=== PATIENT | female | born 1930 | race Caucasian/White ===

== ENCOUNTER 2017-09-13 09:59 | Inpatient (IN) | payer MEDICARE ==
[2017-09-13] MEDS: IV NORMAL SALINE 1000ML BAG 1,000 ML IV (11:06)
[2017-09-13] MEDS: 0.9 % SODIUM CHLORIDE 10 ML DISP.SYRIN. IV (11:06)
[2017-09-13 11:08] LABS: ADD MAN DIFF? NO
[2017-09-13 11:10] LABS: BASO # 0.1 x10^3/uL (0.0-0.2); BASO % 1 % (0-3); EOS # 0.1 x10^3/uL (0.0-0.7); EOS % 1 % (0-3); HEMATOCRIT 38.6 % (36.0-47.0); HEMOGLOBIN 12.6 g/dL (12.0-15.5); LYMPH # 2.3 x10^3/uL (1.0-4.8); LYMPH % 25 % (24-48); MEAN CORPUSCULAR HEMOGLOBIN 30 pg (25-35); MEAN CORPUSCULAR HGB CONC 33 g/dL (31-37); MEAN CORPUSCULAR VOLUME 91 fL (79-100); MONO # 0.7 x10^3/uL (0.0-1.1); MONO % 8 % (0-9); NEUT # 6.1 x10^3uL (1.8-7.7); NEUT % 66 % (31-73); PLATELET COUNT 159 x10^3/uL (140-400); RED BLOOD COUNT 4.22 x10^6/uL (3.50-5.40); RED CELL DISTRIBUTION WIDTH 14.8 % (11.5-14.5); WHITE BLOOD COUNT 9.2 x10^3/uL (4.0-11.0)
[2017-09-13] MEDS ORDERED: MECLIZINE HCL 12.5 MG TABLET. PO (12:00)
[2017-09-13] MEDS ORDERED: MAGNESIUM HYDROXIDE 2,400 MG/30 ML ORAL.SUSP. PO (12:00)
[2017-09-13] MEDS ORDERED: fentaNYL PF VIAL 100 MCG/2 ML VIAL IV (12:00)
[2017-09-13] MEDS ORDERED: traMADol 50 MG TABLET PO (12:00)
[2017-09-13] MEDS ORDERED: LACTULOSE 20 GM/30 ML SOLUTION. PO (12:00)
[2017-09-13] MEDS ORDERED: IBUPROFEN 400 MG TABLET. PO (12:00)
[2017-09-13] MEDS ORDERED: NITROGLYCERIN SUBLINGUAL 0.4 MG BOTTLE OF 25. SL (12:00)
[2017-09-13] MEDS ORDERED: BISACODYL 10 MG SUPP.RECT. PR (12:00)
[2017-09-13 12:23] LABS: TROPONINI < 0.017 ng/mL (0.000-0.055)
[2017-09-13 12:25] LABS: D-DIMER 0.45 ug/mlFEU (0.00-0.50)
[2017-09-13 12:28] LABS: ANION GAP 12 (6-14); BLOOD UREA NITROGEN 18 mg/dL (7-20); CALCIUM 8.8 mg/dL (8.5-10.1); CARBON DIOXIDE 23 mmol/L (21-32); CHLORIDE 107 mmol/L (98-107); CREATININE 0.8 mg/dL (0.6-1.0); GLUCOSE 93 mg/dL (70-99); POTASSIUM 4.5 mmol/L (3.5-5.1); SODIUM 142 mmol/L (136-145)
[2017-09-13 12:28] LABS: THYROID STIM HORMONE (TSH) 1.268 uIU/mL (0.358-3.74)
[2017-09-13 12:32] LABS: ALBUMIN 3.5 g/dL (3.4-5.0); ALK PHOS 58 U/L (46-116); ALT (SGPT) 18 U/L (14-59); AST (SGOT) 18 U/L (15-37); DIRECT BILIRUBIN 0.2 mg/dL (0.0-0.2); LIPASE 36 U/L (73-393); TOTAL BILIRUBIN 0.5 mg/dL (0.2-1.0); TOTAL PROTEIN 7.6 g/dL (6.4-8.2)
[2017-09-13 12:40] LABS: CKMB MASS 1.2 ng/mL (0.0-3.6); CREATINE KINASE 47 U/L (26-192)
[2017-09-13 12:40] LABS: NT-PRO BNP 2183 pg/mL (0-449)
[2017-09-13 12:50] LABS: BILIRUBIN,URINE NEGATIVE (NEG); CLARITY,URINE CLEAR; COLOR,URINE YELLOW; GLUCOSE,URINE NEGATIVE (NEG); NITRITE,URINE NEGATIVE (NEG); PROTEIN,URINE NEGATIVE (NEG-TRACE); UROBILINOGEN,URINE 0.2 mg/dL (0.2 mg/dL)
[2017-09-13 13:02] LABS: RBC,URINE 0 /HPF (0-2)
[2017-09-13 13:03] LABS: AMORPHOUS SEDIMENT,UR PRESENT /HPF; BACTERIA,URINE 0 /HPF (0-FEW); SQUAMOUS EPITHELIAL CELL,UR FEW /LPF
[2017-09-13] MEDS: LISINOPRIL 5 MG TABLET. PO (13:45)
[2017-09-13] MEDS: METOPROLOL SUCC 24HR ER 25 MG TAB.ER.24H. PO ×2 (13:45→13:46)
[2017-09-13] MEDS: FLUoxetine HCL 20 MG CAPSULE PO (13:45)
[2017-09-13] MEDS: CLOPIDOGREL BISULFATE 75 MG TABLET PO (13:45)
[2017-09-13] MEDS: ASPIRIN ENTERIC COATED 325 MG TABLET.DR. PO (13:48)
[2017-09-13] MEDS: ONDANSETRON PF 4 MG/2 ML VIAL. IV (20:04)
[2017-09-13] MEDS: ACETAMINOPHEN 325 MG TABLET. PO (20:46)
[2017-09-13] MEDS: DOCUSATE SODIUM 100 MG CAPSULE. PO (20:46)
[2017-09-14] MEDS: FLUoxetine HCL 20 MG CAPSULE PO (08:10)
[2017-09-14] MEDS: CLOPIDOGREL BISULFATE 75 MG TABLET PO (08:10)
[2017-09-14] MEDS: DOCUSATE SODIUM 100 MG CAPSULE. PO (08:10)
[2017-09-14] MEDS: METOPROLOL SUCC 24HR ER 25 MG TAB.ER.24H. PO (08:10)
[2017-09-14] MEDS: LISINOPRIL 5 MG TABLET. PO (08:10)
[2017-09-14] MEDS: ASPIRIN ENTERIC COATED 325 MG TABLET.DR. PO (08:16)
[2017-09-14] MEDS: ACETAMINOPHEN 325 MG TABLET. PO (09:36)
[2017-09-14] MEDS ORDERED: ATORVASTATIN CALCIUM 10 MG TABLET. PO (21:00)
== END 2017-09-14 15:09 | disposition home or self-care (01) | DRG 149 ==
LOC: ER 09:59 → 5 SOUTH 11:00
DX: H81.10 Benign paroxysmal vertigo, unspecified ear (principal); I11.9 Hypertensive heart disease without heart failure; F32.9 Major depressive disorder, single episode, unspecified; I25.10 Atherosclerotic heart disease of native coronary artery without angina pectoris; I25.2 Old myocardial infarction; M17.12 Unilateral primary osteoarthritis, left knee; M19.90 Unspecified osteoarthritis, unspecified site; Z96.659 Presence of unspecified artificial knee joint; Z85.3 Personal history of malignant neoplasm of breast; Z86.73 Personal history of transient ischemic attack (TIA), and cerebral infarction without residual deficits; Z90.49 Acquired absence of other specified parts of digestive tract; Z95.5 Presence of coronary angioplasty implant and graft; Z88.6 Allergy status to analgesic agent; Z88.1 Allergy status to other antibiotic agents; Z88.8 Allergy status to other drugs, medicaments and biological substances
CPT/HCPCS: 36415; 71045; 80048; 80076; 81001; 82553; 83690; 83735; 83880; 84443; 84484; 85025; 85379; 87086; 93005; 95992-GP; 96361; 96374; 97116-GP; 97162-GP; 97166-GO; 97530-GP; 99285-25; J2405; J7030

== ENCOUNTER 2018-11-19 09:42 | Inpatient (IN) | payer MEDICARE ==
[~2018-11-19] VITALS: Ht 162.6 cm; Wt 67.8 kg
[~2018-11-19 09:42] MED LIST: ASPI-630 PO; ASPI325T11 PO; ATOR10TA60 PO; ATOR40TA59 PO; CLOP75TA PO; FLUO40CA2 PO; LISI-338 PO; METO-239 PO; METO25TA4 PO; NITR0.4T SL; TICA90TA PO
[2018-11-19 10:26] LABS: BASO % 1 % (0-3); EOS # 0.2 x10^3/uL (0.0-0.7); EOS % 4 % (0-3); HEMATOCRIT 38.4 % (36.0-47.0); HEMOGLOBIN 12.6 g/dL (12.0-15.5); LYMPH # 1.4 x10^3/uL (1.0-4.8); LYMPH % 30 % (24-48); MEAN CORPUSCULAR HEMOGLOBIN 29 pg (25-35); MEAN CORPUSCULAR HGB CONC 33 g/dL (31-37); MEAN CORPUSCULAR VOLUME 89 fL (79-100); MONO # 0.5 x10^3/uL (0.0-1.1); MONO % 10 % (0-9); NEUT # 2.6 x10^3uL (1.8-7.7); NEUT % 55 % (31-73); PLATELET COUNT 170 x10^3/uL (140-400); RED BLOOD COUNT 4.29 x10^6/uL (3.50-5.40); RED CELL DISTRIBUTION WIDTH 15.1 % (11.5-14.5); WHITE BLOOD COUNT 4.8 x10^3/uL (4.0-11.0)
[2018-11-19 10:35] LABS: PROTHROMBIN TIME PATIENT 14.6 SEC (11.7-14.0)
[2018-11-19 10:51] LABS: CALCIUM 8.6 mg/dL (8.5-10.1); CREATININE 0.7 mg/dL (0.6-1.0); GFR 79.2
[2018-11-19 10:58] LABS: ALBUMIN/GLOBULIN RATIO 0.8 (1.0-1.7); MAGNESIUM 2.1 mg/dL (1.8-2.4); TOTAL BILIRUBIN 0.7 mg/dL (0.2-1.0); TOTAL PROTEIN 6.6 g/dL (6.4-8.2)
[2018-11-19 11:04] LABS: CREATINE KINASE 68 U/L (26-192)
--- NOTE | 2018-11-19 11:11 | RAD ---
Portable chest, 11/19/2018: HISTORY: Fall, syncope Comparison is made to a study from 12/30/2017. The heart is at the upper limits of normal in size. There is calcific plaquing of the aorta. The pulmonary vascularity is normal. There are minimal parenchymal scars. No pulmonary consolidation is seen. There is no evidence of pleural fluid. There is chronic deformity of the posterior lateral aspect of the left seventh rib. Radiopacities projected over the region of the GE junction are presumably postsurgical. Scattered degenerative changes are evident in the spine. IMPRESSION: No acute cardiopulmonary abnormality is detected. Portable left knee, 2 views, 11/19/2018: HISTORY: Knee pain There is moderate narrowing of the medial compartment of the left knee joint. There is mild spurring at the knee joint and at the patellofemoral articulation. No acute fracture or dislocation is identified. No large joint effusion is seen. Arterial calcifications are evident. IMPRESSION: 1. Degenerative change. 2. No acute bony abnormality is detected. Electronically signed by: Gabo Jules MD (11/19/2018 11:07 AM) [facility]
[2018-11-19 11:39] LABS: BILIRUBIN,URINE NEGATIVE (NEG); CLARITY,URINE CLEAR; COLOR,URINE YELLOW; NITRITE,URINE NEGATIVE (NEG); PROTEIN,URINE NEGATIVE (NEG-TRACE); UROBILINOGEN,URINE 0.2 mg/dL (0.2 mg/dL)
--- NOTE | 2018-11-19 11:54 | RAD ---
CT of the cervical spine without contrast, 11/19/2018: HISTORY: Fall, injury, pain Noncontrast scans were obtained with multiplanar reconstructions produced. There is moderate disc space narrowing and marginal spurring at all of the levels from C3-4 down through C6-7. There are mild to moderate degenerative changes involving scattered facet joints bilaterally. The combination of findings is causing mild central spinal stenosis at several levels, greatest at C4-5 and C5-6. There is slight anterolisthesis at C2-3 and C3-4 which appears to be due to facet joint arthropathy. No fracture is identified. Moderate calcific plaquing is present at the carotid bifurcations. IMPRESSION: 1. Moderate multilevel degenerative change as described above. 2. No acute bony abnormality is detected. PQRS Compliance Statement: One or more of the following individualized dose reduction techniques were utilized for this examination: 1. Automated exposure control 2. Adjustment of the mA and/or kV according to patient size 3. Use of iterative reconstruction technique Electronically signed by: Gabo Jules MD (11/19/2018 11:52 AM) [facility]
[2018-11-19 11:58] LABS: BACTERIA,URINE FEW /HPF (0-FEW); RBC,URINE OCC /HPF (0-2); SQUAMOUS EPITHELIAL CELL,UR FEW /LPF; WBC,URINE OCC /HPF (0-4)
--- NOTE | 2018-11-19 12:06 | RAD ---
EXAM: CT Head without IV contrast CLINICAL HISTORY: fell, hit head and face on floor, having headache, neck pain, facial pain COMPARISON: None. TECHNIQUE: Routine CT of the head without contrast. Soft tissues and bone windows were reviewed. PQRS compliance statement - One or more of the following individualized dose reduction techniques were utilized for this study: 1. Automated exposure control 2. Adjustment of the mA and/or kV according to patient size 3. Use of iterative reconstruction technique FINDINGS: There is no evidence of hemorrhage, mass or extra-axial fluid collection. Groves-white differentiation is maintained with no evidence of edema. There are non-specific foci of hypodensity in the periventricular and subcortical white matter of the cerebral hemispheres, possibly changes of chronic small vessel disease. There is no mass effect or shift of the intracranial structures. The ventricles and cerebral sulci are prominent for the patients stated age consistent with generalized cerebral volume loss. Peripherally calcified choroid plexus cystic structures are seen. The cerebellum and brainstem are unremarkable. The calvarium demonstrates no evidence of fracture or focal lesion. There is normal aeration of the visualized paranasal sinuses and mastoid air cells. The visualized portions of the orbits are normal. Marked soft tissue swelling overlying the left frontal region. Atherosclerotic calcifications of the intracranial internal carotid and vertebral arteries is seen. IMPRESSION: 1. No evidence for acute intracranial process. 2. Changes of chronic small vessel disease. 3. Marked subcutaneous soft tissue swelling overlying the left frontal region. EXAM: CT facial bones without contrast CLINICAL HISTORY: fell, hit head and face on floor, having headache, neck pain, facial pain COMPARISON: None available. TECHNIQUE: Helical CT of the face/paranasal sinuses was acquired and axial, coronal and sagittal reformatted images were generated. ---PQRS compliance statement - One or more of the following individualized dose reduction techniques were utilized for this study: 1. Automated exposure control 2. Adjustment of the mA and/or kV according to patient size 3. Use of iterative reconstruction technique--- FINDINGS: Moderate subcutaneous soft tissue swelling overlying the left frontal region. No definite fracture is noted of the facial bones. The visualized paranasal sinuses are well-aerated. No evidence of air-fluid levels. The mastoids are unremarkable. The globes, extraocular muscles, optic nerves and retrobulbar fat are normal. Visualized upper aerodigestive tract is normal. Mandible and bilateral temporomandibular joints are normal. IMPRESSION: 1. Moderate soft tissue swelling overlying the left frontal region. No definite associated fracture or dislocation is identified. Electronically signed by: Song Maldonado MD (11/19/2018 12:03 PM) [id number]
--- NOTE | 2018-11-19 12:41 | EKG ---
[facility] [address] [place] [address] Test Date: 2018-11-19 Test Time: 10:05:49 Pat Name: SHENA ULLOA Department: Room: Gender: F [employer]: : 1930 Requested By: ZIYAD BUENROSTRO Order Number: [id number] Reading MD: Leopoldo Parker MD Measurements Intervals [place] Rate: 73 P: 49 RI: 226 QRS: -56 QRSD: 150 T: 93 QT: 436 QTc: 484 Interpretive Statements SINUS RHYTHM LBBB CANNOT RULE OUT PRIOR INFARCT Electronically Signed On 11-19-2018 15:51:33 CDT by Leopoldo Parker MD
--- NOTE | 2018-11-19 13:07 | PHYS DOC ---
Past Medical History Past Medical History: Arthritis, CAD, Cancer, Depression, SC, TIA, Other Additional Past Medical Histor: BREAST CANCER, HEMORRHOIDS Past Surgical History: Appendectomy, Cholecystectomy, Knee Replacement, Other Additional Past Surgical Histo: STOMACH RESECTION, R MASECTOMY, VEIN STRIPPED R LEG, CARDIAC STENTS Alcohol Use: None Drug Use: None Adult General Chief Complaint Chief Complaint: MECHANICAL FALL HPI HPI Patient is a 88 year old FEMALE who was brought here for evaluation from home after she collapsed suddenly, hit her head, face on ground. Patient also hit her left knee, having left knee pain. Patient did not remember what happened. She denies any chest pain or any headache prior to the syncopal episode. She denies any pelvic pain, no back pain. Review of Systems Review of Systems Constitutional: Denies fever or chills [] Eyes: Denies change in visual acuity, redness, or eye pain [] HENT: Denies nasal congestion or sore throat [] Respiratory: Denies cough or shortness of breath [] Cardiovascular: No additional information not addressed in HPI [] GI: Denies abdominal pain, nausea, vomiting, bloody stools or diarrhea [] : Denies dysuria or hematuria [] Musculoskeletal: Denies back pain, Positive for right knee pain. Integument: Denies rash or skin lesions [] Neurologic: POSITIVE FOR headache, no focal weakness or sensory changes [] Endocrine: Denies polyuria or polydipsia [] All other systems were reviewed and found to be within normal limits, except as documented in this note. Current Medications Current Medications Allergies Allergies Allergies Coded Allergies Type Severity Reaction Last Updated Verified Opioids - Morphine Analogues Allergy Severe Anaphylaxis 08/12/17 Yes Opioids-Meperidine and Related Allergy Severe Anaphylaxis 08/12/17 Yes Opioids-Methadone and Related Allergy Severe Anaphylaxis 08/12/17 Yes ciprofloxacin Allergy Intermediate Rash 08/12/17 Yes Physical Exam Physical Exam Constitutional: Well developed, well nourished, no acute distress, non-toxic appearance. [] HENT: Left side temporal area contusion, LEFT SIDE FOREHEAD CONTUSION, left side cheek contusion, left periorbital contusion, bilateral external ears normal , oropharynx moist, no oral exudates, nose normal. [] Eyes: PERRLA, EOMI, conjunctiva normal, no discharge. [] Neck: Normal range of motion, no tenderness, supple, no stridor. [] Cardiovascular:Heart rate regular rhythm, no murmur [] Lungs & Thorax: Bilateral breath sounds clear to auscultation [] Abdomen: Bowel sounds normal, soft, no tenderness, no masses, no pulsatile masses. [] Skin: Warm, dry, no erythema, no rash. [] Back: No tenderness, no CVA tenderness. [] Extremities: No tenderness, no cyanosis, no clubbing, ROM intact, no edema. LEFT KNEE, ANTERIOR AREA IS TENDER AND CONTUSED, KNEE JOINT IS STABLE, Neurologic: Alert and oriented X 3, normal motor function, normal sensory function, no focal deficits noted. [] Psychologic: Affect normal, judgement normal, mood normal. [] Current Patient Data Vital Signs Vital Signs Date Time Temp Pulse Resp B/P (MAP) Pulse Ox O2 Delivery O2 Flow Rate FiO2 11/19/18 12:30 68 18 97 11/19/18 09:45 97.9 161/85 (110) Room Air 97.9 Lab Values Laboratory Tests Test 11/19/18 10:15 11/19/18 11:25 White Blood Count 4.8 x10^3/uL (4.0-11.0) Red Blood Count 4.29 x10^6/uL (3.50-5.40) Hemoglobin 12.6 g/dL (12.0-15.5) Hematocrit 38.4 % (36.0-47.0) Mean Corpuscular Volume 89 fL (79-100) Mean Corpuscular Hemoglobin 29 pg (25-35) Mean Corpuscular Hemoglobin Concent 33 g/dL (31-37) Red Cell Distribution Width 15.1 % (11.5-14.5) H Platelet Count 170 x10^3/uL (140-400) Neutrophils (%) (Auto) 55 % (31-73) Lymphocytes (%) (Auto) 30 % (24-48) Monocytes (%) (Auto) 10 % (0-9) H Eosinophils (%) (Auto) 4 % (0-3) H Basophils (%) (Auto) 1 % (0-3) Neutrophils # (Auto) 2.6 x10^3uL (1.8-7.7) Lymphocytes # (Auto) 1.4 x10^3/uL (1.0-4.8) Monocytes # (Auto) 0.5 x10^3/uL (0.0-1.1) Eosinophils # (Auto) 0.2 x10^3/uL (0.0-0.7) Basophils # (Auto) 0.0 x10^3/uL (0.0-0.2) Prothrombin Time 14.6 SEC (11.7-14.0) H Prothrombin Time INR 1.2 (0.8-1.1) H PTT 32 SEC (24-38) Sodium Level 142 mmol/L (136-145) Potassium Level 4.0 mmol/L (3.5-5.1) Chloride Level 108 mmol/L (98-107) H Carbon Dioxide Level 23 mmol/L (21-32) Anion Gap 11 (6-14) Blood Urea Nitrogen 11 mg/dL (7-20) Creatinine 0.7 mg/dL (0.6-1.0) Estimated GFR (Cockcroft-Gault) 79.2 BUN/Creatinine Ratio 16 (6-20) Glucose Level 102 mg/dL (70-99) H Calcium Level 8.6 mg/dL (8.5-10.1) Magnesium Level 2.1 mg/dL (1.8-2.4) Total Bilirubin 0.7 mg/dL (0.2-1.0) Aspartate Amino Transferase (AST) 21 U/L (15-37) Alanine Aminotransferase (ALT) 17 U/L (14-59) Alkaline Phosphatase 60 U/L (46-116) Creatine Kinase 68 U/L (26-192) Creatine Kinase MB (Mass) 2.0 ng/mL (0.0-3.6) Creatine Kinase MB Relative Index % (0-4) Troponin I Quantitative 0.044 ng/mL (0.000-0.055) TY-Miv-Z-Type Natriuretic Peptide 1520 pg/mL (0-449) H Total Protein 6.6 g/dL (6.4-8.2) Albumin 3.0 g/dL (3.4-5.0) L Albumin/Globulin Ratio 0.8 (1.0-1.7) L Urine Collection Type Unknown Urine Color Yellow Urine Clarity Clear Urine pH 6.0 Urine Specific [place] 1.015 Urine Protein Negative mg/dL (NEG-TRACE) Urine Glucose (UA) Negative mg/dL (NEG) Urine Ketones (Stick) Negative mg/dL (NEG) Urine Blood Negative (NEG) Urine Nitrite Negative (NEG) Urine Bilirubin Negative (NEG) Urine Urobilinogen Dipstick 0.2 mg/dL (0.2 mg/dL) Urine Leukocyte Esterase Negative (NEG) Urine RBC Occ /HPF (0-2) Urine WBC Occ /HPF (0-4) Urine Squamous Epithelial Cells Few /LPF Urine Bacteria Few /HPF (0-FEW) Laboratory Tests 11/19/18 10:15 Laboratory Tests 11/19/18 10:15 EKG EKG EKG WAS READ BY THIS PHYSICIAN AT 1006, RATE OF 73 bpm, no STEMI., WIDE QRS COMPLEX, NO CHANGE FROM PREVIOUS EKG.[] Radiology/Procedures Radiology/Procedures [][facility] [address] [place] [address] IMAGING REPORT Signed PATIENT: SHENA ULLOA ACCOUNT: [id number] : 1930 LOCATION: ER AGE: 88 SEX: F EXAM STATUS: REG ER ORD. PHYSICIAN: ZIYAD BUENROSTRO DO REASON: fell, hit head and face on floor, having headache, neck pain, facial pain PROCEDURE: CT HEAD AND MAXILLOFACIAL WO EXAM: CT Head without IV contrast CLINICAL HISTORY: fell, hit head and face on floor, having headache, neck pain, facial pain COMPARISON: None. TECHNIQUE: Routine CT of the head without contrast. Soft tissues and bone windows were reviewed. PQRS compliance statement - One or more of the following individualized dose reduction techniques were utilized for this study: 1. Automated exposure control 2. Adjustment of the mA and/or kV according to patient size 3. Use of iterative reconstruction technique FINDINGS: There is no evidence of hemorrhage, mass or extra-axial fluid collection. Groves-white differentiation is maintained with no evidence of edema. There are non-specific foci of hypodensity in the periventricular and subcortical white matter of the cerebral hemispheres, possibly changes of chronic small vessel disease. There is no mass effect or shift of the intracranial structures. The ventricles and cerebral sulci are prominent for the patients stated age consistent with generalized cerebral volume loss. Peripherally calcified choroid plexus cystic structures are seen. The cerebellum and brainstem are unremarkable. The calvarium demonstrates no evidence of fracture or focal lesion. There is normal aeration of the visualized paranasal sinuses and mastoid air cells. The visualized portions of the orbits are normal. Marked soft tissue swelling overlying the left frontal region. Atherosclerotic calcifications of the intracranial internal carotid and vertebral arteries is seen. IMPRESSION: 1. No evidence for acute intracranial process. 2. Changes of chronic small vessel disease. 3. Marked subcutaneous soft tissue swelling overlying the left frontal region. EXAM: CT facial bones without contrast CLINICAL HISTORY: fell, hit head and face on floor, having headache, neck pain, facial pain COMPARISON: None available. TECHNIQUE: Helical CT of the face/paranasal sinuses was acquired and axial, coronal and sagittal reformatted images were generated. ---PQRS compliance statement - One or more of the following individualized dose reduction techniques were utilized for this study: 1. Automated exposure control 2. Adjustment of the mA and/or kV according to patient size 3. Use of iterative reconstruction technique--- FINDINGS: Moderate subcutaneous soft tissue swelling overlying the left frontal region. No definite fracture is noted of the facial bones. The visualized paranasal sinuses are well-aerated. No evidence of air-fluid levels. The mastoids are unremarkable. The globes, extraocular muscles, optic nerves and retrobulbar fat are normal. Visualized upper aerodigestive tract is normal. Mandible and bilateral temporomandibular joints are normal. IMPRESSION: 1. Moderate soft tissue swelling overlying the left frontal region. No definite associated fracture or dislocation is identified. Electronically signed by: Song Hernandez MD (11/19/2018 12:03 PM) [id number] DICTATED and SIGNED BY: SONG HERNANDEZ MD DATE: 11/19/18 1203 [facility] [address] [place], [place] [id number] IMAGING REPORT Signed PATIENT: SHENA ULLOA ACCOUNT: [id number] : 1930 LOCATION: ER AGE: 88 SEX: F EXAM STATUS: REG ER ORD. PHYSICIAN: ZIYAD BUENROSTRO DO REASON: fell, hit head and face on floor, having headache, neck pain, facial pain PROCEDURE: CT CERVICAL SPINE WO CONTRAST CT of the cervical spine without contrast, 11/19/2018: HISTORY: Fall, injury, pain Noncontrast scans were obtained with multiplanar reconstructions produced. There is moderate disc space narrowing and marginal spurring at all of the levels from C3-4 down through C6-7. There are mild to moderate degenerative changes involving scattered facet joints bilaterally. The combination of findings is causing mild central spinal stenosis at several levels, greatest at C4-5 and C5-6. There is slight anterolisthesis at C2-3 and C3-4 which appears to be due to facet joint arthropathy. No fracture is identified. Moderate calcific plaquing is present at the carotid bifurcations. IMPRESSION: 1. Moderate multilevel degenerative change as described above. 2. No acute bony abnormality is detected. RS Compliance Statement: One or more of the following individualized dose reduction techniques were utilized for this examination: 1. Automated exposure control 2. Adjustment of the mA and/or kV according to patient size 3. Use of iterative reconstruction technique Electronically signed by: Gabo Jules MD (11/19/2018 11:52 AM) [facility] DICTATED and SIGNED BY: GABO JULES MD DATE: 11/19/[address] [place] [address] [address] [place] [address] IMAGING REPORT Signed PATIENT: SHENA ULLOA ACCOUNT: [id number] : 1930 LOCATION: ER AGE: 88 SEX: F EXAM STATUS: REG ER ORD. PHYSICIAN: ZIYAD BUENROSTRO DO REASON: fell, left knee injury PROCEDURE: KNEE LEFT 3V Portable chest, 11/19/2018: HISTORY: Fall, syncope Comparison is made to a study from 12/30/2017. The heart is at the upper limits of normal in size. There is calcific plaquing of the aorta. The pulmonary vascularity is normal. There are minimal parenchymal scars. No pulmonary consolidation is seen. There is no evidence of pleural fluid. There is chronic deformity of the posterior lateral aspect of the left seventh rib. Radiopacities projected over the region of the GE junction are presumably postsurgical. Scattered degenerative changes are evident in the spine. IMPRESSION: No acute cardiopulmonary abnormality is detected. Portable left knee, 2 views, 11/19/2018: HISTORY: Knee pain There is moderate narrowing of the medial compartment of the left knee joint. There is mild spurring at the knee joint and at the patellofemoral articulation. No acute fracture or dislocation is identified. No large joint effusion is seen. Arterial calcifications are evident. IMPRESSION: 1. Degenerative change. 2. No acute bony abnormality is detected. Electronically signed by: Gabo Jules MD (11/19/2018 11:07 AM) [facility] DICTATED and SIGNED BY: GABO JULES MD DATE: 11/19/18 1108 Course & Med Decision Making Course & Med Decision Making Pertinent Labs and Imaging studies reviewed. (See chart for details) [] Dragon Disclaimer Dragon Disclaimer This electronic medical record was generated, in whole or in part, using a voice recognition dictation system. Departure Departure Impression: Primary Impression: Syncope and collapse Additional Impressions: Contusion of face Head injury Disposition: ADMITTED INPATIENT Admitting Physician: Other (DR. SAIRA WEBER) Condition: STABLE Referrals: ANSHUL VALENCIA MD (PCP) Problem Qualifiers ZIYAD BUENROSTRO DO Nov 19, 2018 13:07
[2018-11-19] MEDS ORDERED: oxyCODONE/APAP 5/325 1 TAB TABLET PO PRN (13:15)
[2018-11-19] MEDS ORDERED: LACTULOSE 20 GM/30 ML SOLUTION. PO PRN (13:15)
[2018-11-19] MEDS ORDERED: ONDANSETRON PF 4 MG/2 ML VIAL. IV PRN ×2 (13:15)
[2018-11-19] MEDS ORDERED: ELECTROLYTE (NON-ICU) PROTOCOL MC PRN (13:15)
[2018-11-19] MEDS ORDERED: ZOLPIDEM 5 MG TABLET. PO PRN (13:15)
[2018-11-19] MEDS ORDERED: NITROGLYCERIN SUBLINGUAL 0.4 MG BOTTLE OF 25. SL PRN (13:15)
[2018-11-19] MEDS ORDERED: ACETAMINOPHEN 325 MG TABLET. PO PRN (13:15)
[2018-11-19] MEDS ORDERED: MORPHINE SULFATE 2 MG/ML VIAL. IV PRN (13:15)
[2018-11-19] MEDS ORDERED: fentaNYL PF VIAL 100 MCG/2 ML VIAL IV PRN (14:00)
--- NOTE | 2018-11-19 14:24 | PDOC1 ---
History and Physical Date of Admission Date of Admission 11/19/2018 Identification/Chief Complaint Chief Complaint I fell Problems: (1) Syncope and collapse (2) Contusion of face Source Source: Chart review, Patient History of Present Illness History of Present Illness Patient is an 88-year-old female with past medical history that includes Arthritis, CAD, Cancer, Depression, VT, TIA, BREAST CANCER, HEMORRHOIDS. Patient was in her usual state of health until this morning when the patient is trying to plug a lamp on the wall she lost her footing and balance and hit the wall then hitting the ground. Patient did not lose consciousness the patient denied palpitations shortness of breath no chest pain was reported. The patient does have a history of orthostasis in the past. Recently she had adjustments done to her medications most likely secondary to this orthostatic changes. She denies slurred speech no neurological deficits were voiced. The patient at the time my evaluation is eating in no apparent distress. The only complaint is headache and secondary to the fall. Plan of care has been explained detail to the patient and her family members were at bedside. All of her concerns were addressed the best of my abilities she is being admitted for observation Past Medical History Cardiovascular: CAD, HTN Pulmonary: No pertinent hx Heme/Onc: No pertinent hx Hepatobiliary: No pertinent hx Psych: No pertinent hx Rheumatologic: No pertinent hx Infectious disease: No pertinent hx Past Surgical History Past Surgical History: Other Family History Family History: No Significant Social History ALCOHOL: none Drugs: None Current Problem List Problem List Problems Medical Problems: (1) Contusion of face Status: Acute (2) Head injury Status: Acute (3) Syncope and collapse Status: Acute Current Medications Current Medications Current Medications Medications (Trade) Dose Ordered Sig/Yoko Start Time Stop Time Status Last Admin Dose Admin Acetaminophen (Tylenol) 650 mg PRN Q6HRS PRN 11/19/18 13:15 Aspirin (Children'S Aspirin) 81 mg DAILY 11/20/18 09:00 UNV Atorvastatin Calcium (Lipitor) 40 mg QHS 11/20/18 09:00 Fentanyl Citrate (Fentanyl 2ml Vial) 25 mcg PRN Q2HRS PRN 11/19/18 14:00 Fluoxetine HCl (PROzac) 40 mg DAILYWBKFT 11/20/18 09:00 UNV Heparin Sodium (Porcine) (Heparin Sodium) 5,000 unit Q12HR 11/19/18 21:00 UNV Info (Non-Icu Electrolyte Protocol) 1 ea PRN DAILY PRN 11/19/18 13:15 Lactulose (Lactulose) 20 gm PRN Q12HR PRN 11/19/18 13:15 UNV Metoprolol Succinate (Toprol Xl) 12.5 mg DAILY 11/20/18 09:00 UNV Morphine Sulfate (Morphine Sulfate) 1 mg PRN Q1HR PRN 11/19/18 13:15 11/19/18 13:49 DC Nitroglycerin (Nitrostat) 0.4 mg PRN Q5MIN PRN 11/19/18 13:15 Ondansetron HCl (Zofran) 4 mg PRN Q6HRS PRN 11/19/18 13:15 Oxycodone/ Acetaminophen (Percocet 5/325) 1 tab PRN Q4HRS PRN 11/19/18 13:15 11/19/18 13:49 DC Senna/Docusate Sodium (Senna Plus) 1 tab BID 11/19/18 21:00 Ticagrelor (Brilinta) 90 mg BID 11/19/18 21:00 UNV Zolpidem Tartrate (Ambien) 5 mg PRN QHS PRN 11/19/18 13:15 Allergies Allergies Allergies Coded Allergies Type Severity Reaction Last Updated Verified Opioids - Morphine Analogues Allergy Severe Anaphylaxis 08/12/17 Yes Opioids-Meperidine and Related Allergy Severe Anaphylaxis 08/12/17 Yes Opioids-Methadone and Related Allergy Severe Anaphylaxis 08/12/17 Yes ciprofloxacin Allergy Intermediate Rash 08/12/17 Yes ROS Review of System CONSTITUTIONAL: No fever or chills EYES: No recent changes SKIN: No rash or itching CARDIOVASCULAR: No chest pain, syncope, palpitations, or edema RESPIRATORY: No SOB or cough GASTROINTESTINAL: No nausea, vomiting or abdominal pain NEUROLOGICAL: No headaches or weakness ENDOCRINE: No cold or heat intolerance GENITOURINARY: No urgency or frequency of urination MUSCULOSKELETAL: No back pain or joint pain LYMPHATICS: No enlarged lymph nodes PSYCHIATRIC: No anxiety or depression Physical Exam Physical Exam GEN.: No apparent distress. Alert and oriented. HEENT: Head is normocephalic, atraumatic NECK: Supple. LUNGS: Clear to auscultation. HEART: RRR, S1, S2 present. Peripheral pulses intact, 2/6 systolic murmur best heard over the second intercostal space right parasternal border radiation to the carotids ABDOMEN: Soft, nontender. Positive bowel sounds. EXTREMITIES: Without any cyanosis. NEUROLOGIC: Normal speech, normal tone PSYCHIATRIC: Normal affect, normal mood. SKIN: No ulcerations Vitals Vitals Vital Signs Date Time Temp Pulse Resp B/P (MAP) Pulse Ox O2 Delivery O2 Flow Rate FiO2 11/19/18 13:00 68 18 98 11/19/18 09:45 97.9 161/85 (110) Room Air 97.9 Labs Labs Laboratory Tests Test 11/19/18 10:15 11/19/18 11:25 White Blood Count 4.8 x10^3/uL (4.0-11.0) Red Blood Count 4.29 x10^6/uL (3.50-5.40) Hemoglobin 12.6 g/dL (12.0-15.5) Hematocrit 38.4 % (36.0-47.0) Mean Corpuscular Volume 89 fL (79-100) Mean Corpuscular Hemoglobin 29 pg (25-35) Mean Corpuscular Hemoglobin Concent 33 g/dL (31-37) Red Cell Distribution Width 15.1 % (11.5-14.5) Platelet Count 170 x10^3/uL (140-400) Neutrophils (%) (Auto) 55 % (31-73) Lymphocytes (%) (Auto) 30 % (24-48) Monocytes (%) (Auto) 10 % (0-9) Eosinophils (%) (Auto) 4 % (0-3) Basophils (%) (Auto) 1 % (0-3) Neutrophils # (Auto) 2.6 x10^3uL (1.8-7.7) Lymphocytes # (Auto) 1.4 x10^3/uL (1.0-4.8) Monocytes # (Auto) 0.5 x10^3/uL (0.0-1.1) Eosinophils # (Auto) 0.2 x10^3/uL (0.0-0.7) Basophils # (Auto) 0.0 x10^3/uL (0.0-0.2) Prothrombin Time 14.6 SEC (11.7-14.0) Prothromb Time International Ratio 1.2 (0.8-1.1) Activated Partial Thromboplast Time 32 SEC (24-38) Sodium Level 142 mmol/L (136-145) Potassium Level 4.0 mmol/L (3.5-5.1) Chloride Level 108 mmol/L (98-107) Carbon Dioxide Level 23 mmol/L (21-32) Anion Gap 11 (6-14) Blood Urea Nitrogen 11 mg/dL (7-20) Creatinine 0.7 mg/dL (0.6-1.0) Estimated GFR (Cockcroft-Gault) 79.2 BUN/Creatinine Ratio 16 (6-20) Glucose Level 102 mg/dL (70-99) Calcium Level 8.6 mg/dL (8.5-10.1) Magnesium Level 2.1 mg/dL (1.8-2.4) Total Bilirubin 0.7 mg/dL (0.2-1.0) Aspartate Amino Transf (AST/SGOT) 21 U/L (15-37) Alanine Aminotransferase (ALT/SGPT) 17 U/L (14-59) Alkaline Phosphatase 60 U/L (46-116) Creatine Kinase 68 U/L (26-192) Creatine Kinase MB (Mass) 2.0 ng/mL (0.0-3.6) Creatine Kinase MB Relative Index % (0-4) Troponin I Quantitative 0.044 ng/mL (0.000-0.055) EK-Ehw-X-Type Natriuretic Peptide 1520 pg/mL (0-449) Total Protein 6.6 g/dL (6.4-8.2) Albumin 3.0 g/dL (3.4-5.0) Albumin/Globulin Ratio 0.8 (1.0-1.7) Urine Collection Type Unknown Urine Color Yellow Urine Clarity Clear Urine pH 6.0 Urine Specific [place] 1.015 Urine Protein Negative mg/dL (NEG-TRACE) Urine Glucose (UA) Negative mg/dL (NEG) Urine Ketones (Stick) Negative mg/dL (NEG) Urine Blood Negative (NEG) Urine Nitrite Negative (NEG) Urine Bilirubin Negative (NEG) Urine Urobilinogen Dipstick 0.2 mg/dL (0.2 mg/dL) Urine Leukocyte Esterase Negative (NEG) Urine RBC Occ /HPF (0-2) Urine WBC Occ /HPF (0-4) Urine Squamous Epithelial Cells Few /LPF Urine Bacteria Few /HPF (0-FEW) Laboratory Tests Test 11/19/18 10:15 11/19/18 11:25 White Blood Count 4.8 x10^3/uL (4.0-11.0) Red Blood Count 4.29 x10^6/uL (3.50-5.40) Hemoglobin 12.6 g/dL (12.0-15.5) Hematocrit 38.4 % (36.0-47.0) Mean Corpuscular Volume 89 fL (79-100) Mean Corpuscular Hemoglobin 29 pg (25-35) Mean Corpuscular Hemoglobin Concent 33 g/dL (31-37) Red Cell Distribution Width 15.1 % (11.5-14.5) Platelet Count 170 x10^3/uL (140-400) Neutrophils (%) (Auto) 55 % (31-73) Lymphocytes (%) (Auto) 30 % (24-48) Monocytes (%) (Auto) 10 % (0-9) Eosinophils (%) (Auto) 4 % (0-3) Basophils (%) (Auto) 1 % (0-3) Neutrophils # (Auto) 2.6 x10^3uL (1.8-7.7) Lymphocytes # (Auto) 1.4 x10^3/uL (1.0-4.8) Monocytes # (Auto) 0.5 x10^3/uL (0.0-1.1) Eosinophils # (Auto) 0.2 x10^3/uL (0.0-0.7) Basophils # (Auto) 0.0 x10^3/uL (0.0-0.2) Prothrombin Time 14.6 SEC (11.7-14.0) Prothromb Time International Ratio 1.2 (0.8-1.1) Activated Partial Thromboplast Time 32 SEC (24-38) Sodium Level 142 mmol/L (136-145) Potassium Level 4.0 mmol/L (3.5-5.1) Chloride Level 108 mmol/L (98-107) Carbon Dioxide Level 23 mmol/L (21-32) Anion Gap 11 (6-14) Blood Urea Nitrogen 11 mg/dL (7-20) Creatinine 0.7 mg/dL (0.6-1.0) Estimated GFR (Cockcroft-Gault) 79.2 BUN/Creatinine Ratio 16 (6-20) Glucose Level 102 mg/dL (70-99) Calcium Level 8.6 mg/dL (8.5-10.1) Magnesium Level 2.1 mg/dL (1.8-2.4) Total Bilirubin 0.7 mg/dL (0.2-1.0) Aspartate Amino Transf (AST/SGOT) 21 U/L (15-37) Alanine Aminotransferase (ALT/SGPT) 17 U/L (14-59) Alkaline Phosphatase 60 U/L (46-116) Creatine Kinase 68 U/L (26-192) Creatine Kinase MB (Mass) 2.0 ng/mL (0.0-3.6) Creatine Kinase MB Relative Index % (0-4) Troponin I Quantitative 0.044 ng/mL (0.000-0.055) CU-Znh-I-Type Natriuretic Peptide 1520 pg/mL (0-449) Total Protein 6.6 g/dL (6.4-8.2) Albumin 3.0 g/dL (3.4-5.0) Albumin/Globulin Ratio 0.8 (1.0-1.7) Urine Collection Type Unknown Urine Color Yellow Urine Clarity Clear Urine pH 6.0 Urine Specific [place] 1.015 Urine Protein Negative mg/dL (NEG-TRACE) Urine Glucose (UA) Negative mg/dL (NEG) Urine Ketones (Stick) Negative mg/dL (NEG) Urine Blood Negative (NEG) Urine Nitrite Negative (NEG) Urine Bilirubin Negative (NEG) Urine Urobilinogen Dipstick 0.2 mg/dL (0.2 mg/dL) Urine Leukocyte Esterase Negative (NEG) Urine RBC Occ /HPF (0-2) Urine WBC Occ /HPF (0-4) Urine Squamous Epithelial Cells Few /LPF Urine Bacteria Few /HPF (0-FEW) VTE Prophylaxis Ordered VTE Prophylaxis Devices: Yes VTE Pharmacological Prophylaxi: No Assessment/Plan Assessment/Plan Presyncopal episode Mechanical fall with subsequent left facial trauma Left gisela-face ecchymosis Essential hypertension History of coronary artery disease currently asymptomatic Holosystolic murmur suspect aortic stenosis Plan: Consult cardiology Resume home medications We'll do orthostatic vital signs Further recommendations based on the clinical course We'll review recent records in order not to be redundant with workup DVT prophylaxis: heparin SAIRA WEBER MD Nov 19, 2018 14:24
[2018-11-19 14:40] VITALS: BP 134/57
[2018-11-19] MEDS ORDERED: METOPROLOL SUCC 24HR ER 25 MG TAB.ER.24H. PO SCH (15:00)
[2018-11-19] MEDS: ASPIRIN CHEWABLE 81 MG TABLET. PO SCH (15:00)
[2018-11-19] MEDS: FLUoxetine HCL 20 MG CAPSULE PO SCH (15:00)
[2018-11-19 15:20] VITALS: BP_SYST 119; BP_SYST 123; BP_SYST 142; BP_DIAS 52; BP_DIAS 57; BP_DIAS 59
[2018-11-19] MEDS ORDERED: CARV3.12 PO (16:31)
[2018-11-19] MEDS ORDERED: ATOR10TA60 PO (16:31)
[2018-11-19] MEDS: CARVEDILOL 3.125 MG TABLET. PO SCH (16:54)
[2018-11-19] MEDS: HEPARIN for SUB-Q USE 5,000 UNIT/ML VIAL. SQ SCH ×2 (16:56→20:17)
--- NOTE | 2018-11-19 17:12 | PDOC2 ---
FILI HWANG ETHICAL HACKER 11/19/18 1712: CARDIAC CONSULT DATE OF CONSULT Date of Consult DATE: 11/19/18 TIME: 1500 REASON FOR CONSULT Reason for Consult: Syncope REFERRING PHYSICIAN Referring Physician: Bony SOURCE Source: Chart review, Patient HISTORY OF PRESENT ILLNESS HISTORY OF PRESENT ILLNESS This is a pleasant 88 yo female admitted for complains of fall. Reports no lost of consciousness. She was trying to plug the lamp shade and was leaning forward but fell forward and hit the wall hard and sustained ecchymoses to her left orbital and cheek. No significant fracture. She then crawled on the floor and called the assistant front office manager at the [facility] for help. Denies any chest pain, SOA, dizziness. No visual or auditory disturbances. Per satff with orthostatic readings no orthostasis noted. She does need to do better with hydration she said and actually took her medications this am but denies having symptoms of pssing out, vertigo, palpitations. No recent nausea or vomiting or diarrhea. No recent fever or chills. Her BP meds have been recently changed due to signs of orthostasis and so far no issues with it. PAST MEDICAL HISTORY Past Medical History Cardiovascular: CAD, HTN, orthostasis, valvular insufficiency Pulmonary: No pertinent hx Heme/Onc: breast CA Hepatobiliary: No pertinent hx Psych: No pertinent hx Rheumatologic: OA Infectious disease: No pertinent hx GI: GERD Neuro: TIA PAST SURGICAL HISTORY Past Surgical History: Cholecystectomy, Mastectomy (right), Total knee replacement (right), Other (PCI/stents; stomach surgery; RLE vein stripping) FAMILY HISTORY Family History noncontributory to age SOCIAL HISTORY Smoke: No ALCOHOL: none Drugs: None Lives: Alone (assisted living) CURRENT MEDICATIONS CURRENT MEDICATIONS Current Medications Medications (Trade) Dose Ordered Sig/Yoko Route PRN Reason Start Time Stop Time Status Last Admin Dose Admin Heparin Sodium (Porcine) (Heparin Sodium) 5,000 unit Q12HR SQ 11/19/18 14:30 11/19/18 16:56 Carvedilol (Coreg) 3.125 mg BIDWMEALS PO 11/19/18 17:00 11/19/18 16:54 ALLERGIES ALLERGIES: Coded Allergies: Opioids - Morphine Analogues (Verified Allergy, Severe, Anaphylaxis, 08/12) Opioids-Meperidine and Related (Verified Allergy, Severe, Anaphylaxis, ) Opioids-Methadone and Related (Verified Allergy, Severe, Anaphylaxis, ) ciprofloxacin (Verified Allergy, Intermediate, Rash, 08/12/17) ROS Review of System 14 point ROS evaluated with pertinent positives noted per HPI PHYSICAL EXAM General: Alert, Oriented X3, Cooperative, No acute distress HEENT: Mucous membr. moist/pink, Other (left orbital contusion and facial cheek bruise and ecchymoses) Heart: Regular rate (SR), Normal S1, Normal S2, Other (3/6 sytolic murmur to LLS border) Abdomen: Soft, No tenderness Extremities: No cyanosis, No edema Skin: No breakdown, Other (left facial bruise) Neuro: Normal speech, Sensation intact Psych/Mental Status: Mental status NL, Mood NL MUSCULOSKELETAL: Osteoarthritic changes both hands VITALS VITALS Vital Signs Date Time Temp Pulse Resp B/P (MAP) Pulse Ox O2 Delivery O2 Flow Rate FiO2 11/19/18 16:54 72 142/57 11/19/18 14:40 97.4 16 99 Room Air 97.4 LABS Lab: Laboratory Tests Test 11/19/18 10:15 11/19/18 11:25 White Blood Count 4.8 x10^3/uL (4.0-11.0) Red Blood Count 4.29 x10^6/uL (3.50-5.40) Hemoglobin 12.6 g/dL (12.0-15.5) Hematocrit 38.4 % (36.0-47.0) Mean Corpuscular Volume 89 fL (79-100) Mean Corpuscular Hemoglobin 29 pg (25-35) Mean Corpuscular Hemoglobin Concent 33 g/dL (31-37) Red Cell Distribution Width 15.1 % (11.5-14.5) Platelet Count 170 x10^3/uL (140-400) Neutrophils (%) (Auto) 55 % (31-73) Lymphocytes (%) (Auto) 30 % (24-48) Monocytes (%) (Auto) 10 % (0-9) Eosinophils (%) (Auto) 4 % (0-3) Basophils (%) (Auto) 1 % (0-3) Neutrophils # (Auto) 2.6 x10^3uL (1.8-7.7) Lymphocytes # (Auto) 1.4 x10^3/uL (1.0-4.8) Monocytes # (Auto) 0.5 x10^3/uL (0.0-1.1) Eosinophils # (Auto) 0.2 x10^3/uL (0.0-0.7) Basophils # (Auto) 0.0 x10^3/uL (0.0-0.2) Prothrombin Time 14.6 SEC (11.7-14.0) Prothromb Time International Ratio 1.2 (0.8-1.1) Activated Partial Thromboplast Time 32 SEC (24-38) Sodium Level 142 mmol/L (136-145) Potassium Level 4.0 mmol/L (3.5-5.1) Chloride Level 108 mmol/L (98-107) Carbon Dioxide Level 23 mmol/L (21-32) Anion Gap 11 (6-14) Blood Urea Nitrogen 11 mg/dL (7-20) Creatinine 0.7 mg/dL (0.6-1.0) Estimated GFR (Cockcroft-Gault) 79.2 BUN/Creatinine Ratio 16 (6-20) Glucose Level 102 mg/dL (70-99) Calcium Level 8.6 mg/dL (8.5-10.1) Magnesium Level 2.1 mg/dL (1.8-2.4) Total Bilirubin 0.7 mg/dL (0.2-1.0) Aspartate Amino Transf (AST/SGOT) 21 U/L (15-37) Alanine Aminotransferase (ALT/SGPT) 17 U/L (14-59) Alkaline Phosphatase 60 U/L (46-116) Creatine Kinase 68 U/L (26-192) Creatine Kinase MB (Mass) 2.0 ng/mL (0.0-3.6) Creatine Kinase MB Relative Index % (0-4) Troponin I Quantitative 0.044 ng/mL (0.000-0.055) DN-Jvt-M-Type Natriuretic Peptide 1520 pg/mL (0-449) Total Protein 6.6 g/dL (6.4-8.2) Albumin 3.0 g/dL (3.4-5.0) Albumin/Globulin Ratio 0.8 (1.0-1.7) Urine Collection Type Unknown Urine Color Yellow Urine Clarity Clear Urine pH 6.0 Urine Specific [place] 1.015 Urine Protein Negative mg/dL (NEG-TRACE) Urine Glucose (UA) Negative mg/dL (NEG) Urine Ketones (Stick) Negative mg/dL (NEG) Urine Blood Negative (NEG) Urine Nitrite Negative (NEG) Urine Bilirubin Negative (NEG) Urine Urobilinogen Dipstick 0.2 mg/dL (0.2 mg/dL) Urine Leukocyte Esterase Negative (NEG) Urine RBC Occ /HPF (0-2) Urine WBC Occ /HPF (0-4) Urine Squamous Epithelial Cells Few /LPF Urine Bacteria Few /HPF (0-FEW) HEART CATH HEART CATH Conclusion Successful complex balloon PTCA to bifurcation stenosis involving the distal LMCA, proximal LAD/LCx and successful drug-eluting stent placement to the ostial /proximal segments of the left anterior descending artery Recommendations 1. Aspirin 325 mg daily 2. Change Plavix to Brilinta 90 mg twice daily for possible Plavix resistance 3. Cardiovascular risk factor modification DATE: 12/31/17 1708 ASSESSMENT/PLAN ASSESSMENT/PLAN 1. Traumatic mechanical fall: obtain contusion to left orbital. No reported syncope and negative for orthostasis or arrhythmia so far. 2. CAD: past stent, clinically stable. 3. HTN: controlled 4. HLP Recommendations 1. Discussed hydration adequacy. 2. Will need to utilize walker. 3. Continue with ASA, may temporary hold brillinta if left orbital swelling or bruising increase. 4. COntinue with low dose home coreg. 5. Check TTE. AISSATUO BOJORQUEZ MD 11/20/18 0721: CARDIAC CONSULT ASSESSMENT/PLAN ASSESSMENT/PLAN Patient seen and examined 11/19/18. Agree with PIPE FITTER AMMONIA's assessment and plan. Fall appears to be mechanical without any loss of consciousness Orthostatics negative Telemetry did not show any significant arrhythmia so for CAD status clinically stable Check 2-D echo to assess LV systolic function Thank you for your consultation FILI HWANG ETHICAL HACKER Nov 19, 2018 17:12 AISSATOU BOJORQUEZ MD Nov 20, 2018 07:21
[2018-11-19 19:16] VITALS: BP 114/43
[2018-11-19] MEDS: ATORVASTATIN CALCIUM 10 MG TABLET. PO SCH (20:19)
[2018-11-19] MEDS: SENNOSIDES/DOCUSATE 8.6/50MG TABLET. PO SCH (20:19)
[2018-11-19] MEDS: TICAGRELOR 90 MG TABLET. PO SCH (20:19)
[2018-11-19 22:40] VITALS: BP 123/41
[2018-11-20 03:40] LABS: BASO % 1 % (0-3); EOS # 0.2 x10^3/uL (0.0-0.7); EOS % 5 % (0-3); HEMATOCRIT 36.2 % (36.0-47.0); HEMOGLOBIN 11.9 g/dL (12.0-15.5); LYMPH # 1.8 x10^3/uL (1.0-4.8); LYMPH % 37 % (24-48); MEAN CORPUSCULAR HEMOGLOBIN 30 pg (25-35); MEAN CORPUSCULAR HGB CONC 33 g/dL (31-37); MEAN CORPUSCULAR VOLUME 90 fL (79-100); MONO # 0.7 x10^3/uL (0.0-1.1); MONO % 14 % (0-9); NEUT # 2.2 x10^3uL (1.8-7.7); NEUT % 44 % (31-73); PLATELET COUNT 158 x10^3/uL (140-400); RED CELL DISTRIBUTION WIDTH 15.1 % (11.5-14.5); WHITE BLOOD COUNT 4.9 x10^3/uL (4.0-11.0)
[2018-11-20 03:52] VITALS: BP 121/41
[2018-11-20 07:00] VITALS: BP 122/46
[2018-11-20] MEDS ORDERED: ATORVASTATIN CALCIUM 40 MG TABLET. PO SCH (09:00)
[2018-11-20] MEDS: FLUoxetine HCL 20 MG CAPSULE PO SCH (09:14)
[2018-11-20] MEDS: ASPIRIN CHEWABLE 81 MG TABLET. PO SCH (09:14)
[2018-11-20] MEDS: TICAGRELOR 90 MG TABLET. PO SCH ×2 (09:14→21:00)
[2018-11-20] MEDS: SENNOSIDES/DOCUSATE 8.6/50MG TABLET. PO SCH ×2 (09:18→21:00)
[2018-11-20] MEDS: CARVEDILOL 3.125 MG TABLET. PO SCH ×2 (09:19→17:00)
[2018-11-20] MEDS: HEPARIN for SUB-Q USE 5,000 UNIT/ML VIAL. SQ SCH ×2 (09:22→21:00)
[2018-11-20 10:48] VITALS: BP 115/49
--- NOTE | 2018-11-20 11:11 | CARD ---
MR#: [id number] Date of Study: 11/20/2018 Ordering Physician: FILI HWANG, Referring Physician: SAIRA WEBER, Tech: Michelle Hood APPROVED REPORT EXAM: Two-dimensional and M-mode echocardiogram with Doppler and color Doppler. Other Information Quality : GoodHR: 59bpm INDICATION Syncope 2D DIMENSIONS RVDd3.1 (2.9-3.5cm)Left Atrium(2D)3.9 (1.6-4.0cm) IVSd1.2 (0.7-1.1cm)Aortic Root(2D)3.1 (2.0-3.7cm) LVDd4.6 (3.9-5.9cm)LVOT Diameter2.2 (1.8-2.4cm) PWd1.0 (0.7-1.1cm)LVDs3.1 (2.5-4.0cm) FS (%) 33.2 %SV60.1 ml Aortic Valve AoV Peak Elvin.194.7cm/sAoV VTI48.0cm AO Peak GR.15.2mmHgLVOT Peak Elvin.72.1cm/s AO Mean GR.10mmHgAVA (VMAX)1.45cm2 AI P 1/2 [id number] Mitral Valve MV E Sjwiikji15.4cm/sMV E Peak Gr.11mmHg MV DECEL [id number] A Wrvemmui642.9cm/s MV E Mean Gr.3mmHgE/A Ratio0.6 Pulmonary Valve PV Peak Ucfrcucu29.3cm/s Tricuspid Valve TR P. Papvauqd936mm/sRAP LRFWIEWC6liYg TR Peak Gr.78pcAmCELI21ijZc Pulmonary Vein S1 Dmzhvwfc16.9cm/sD2 Oqfymgpl12.6cm/s PVa qeibottf398bprw LEFT VENTRICLE The left ventricle is normal size. There is mild concentric left ventricular hypertrophy. The left ve ntricular systolic function is normal and the ejection fraction is within normal range. The Ejection Fraction is 55-60%. There is normal LV segmental wall motion. Transmitral Doppler flow pattern is Gra de I-abnormal relaxation pattern. RIGHT VENTRICLE The right ventricle is normal size. There is normal right ventricular wall thickness. The right ventr icular systolic function is normal. ATRIA The left atrium size is normal. The right atrium size is normal. The interatrial septum is intact wit h no evidence for an atrial septal defect or patent foramen ovale as noted on 2-D or Doppler imaging. AORTIC VALVE The aortic valve is calcified and displays decreased opening. Doppler and Color Flow revealed mild ao rtic regurgitation. There is no significant aortic valvular stenosis. MITRAL VALVE The mitral valve is thickened and displays decreased opening. There is no evidence of mitral valve pr olapse. There is no mitral valve stenosis. Doppler and Color-flow revealed mild to moderate mitral re gurgitation. TRICUSPID VALVE The tricuspid valve is normal in structure and function. Doppler and Color Flow revealed trace tricus pid regurgitation with an estimated PAP of 23 mmHg. There is no tricuspid valve stenosis. PULMONIC VALVE The pulmonic valve is not well visualized. Doppler and Color Flow revealed trace to mild pulmonic daina vular regurgitation. GREAT VESSELS The aortic root is normal in size. The IVC is normal in size and collapses >50% with inspiration. PERICARDIAL EFFUSION There is no evidence of significant pericardial effusion. Critical Notification Critical Value: No <Conclusion> The left ventricle is normal size. The left ventricular systolic function is normal and the ejection fraction is within normal range. The Ejection Fraction is 55-60%. There is mild concentric left ventricular hypertrophy. There is no significant aortic valvular stenosis. Doppler and Color Flow revealed mild aortic regurgitation. Doppler and Color-flow revealed mild to moderate mitral regurgitation. Doppler and Color Flow revealed trace tricuspid regurgitation with an estimated PAP of 23 mmHg. Signed by : Hayden Loyola MD Electronically Approved : 11/20/2018 11:10:57
--- NOTE | 2018-11-20 11:31 | PDOC ---
EVAN SHARPE SOUND CONTROLLER 11/20/18 1131: CARDIO Progress Notes Date and Time Date of Service 11/20/18 Time of Evaluation 1030 Subjective Subjective: No Chest Pain, No shortness of breath, No Palpitations Vitals Vitals Vital Signs Date Time Temp Pulse Resp B/P (MAP) Pulse Ox O2 Delivery O2 Flow Rate FiO2 11/20/18 10:48 98.2 70 16 115/49 (71) 96 Room Air 98.2 Weight Weight [ ] Input and Output Intake and Output Intake and Output 11/20/18 07:00 Intake Total 640 ml Output Total 850 ml Balance -210 ml Intake Oral 640 ml Output Urine Total 850 ml # Voids 3 Laboratory Labs Laboratory Tests Test 11/19/18 11:25 11/20/18 03:20 Urine Collection Type Unknown Urine Color Yellow Urine Clarity Clear Urine pH 6.0 Urine Specific [place] 1.015 Urine Protein Negative mg/dL (NEG-TRACE) Urine Glucose (UA) Negative mg/dL (NEG) Urine Ketones (Stick) Negative mg/dL (NEG) Urine Blood Negative (NEG) Urine Nitrite Negative (NEG) Urine Bilirubin Negative (NEG) Urine Urobilinogen Dipstick 0.2 mg/dL (0.2 mg/dL) Urine Leukocyte Esterase Negative (NEG) Urine RBC Occ /HPF (0-2) Urine WBC Occ /HPF (0-4) Urine Squamous Epithelial Cells Few /LPF Urine Bacteria Few /HPF (0-FEW) White Blood Count 4.9 x10^3/uL (4.0-11.0) Red Blood Count 4.00 x10^6/uL (3.50-5.40) Hemoglobin 11.9 g/dL (12.0-15.5) Hematocrit 36.2 % (36.0-47.0) Mean Corpuscular Volume 90 fL (79-100) Mean Corpuscular Hemoglobin 30 pg (25-35) Mean Corpuscular Hemoglobin Concent 33 g/dL (31-37) Red Cell Distribution Width 15.1 % (11.5-14.5) Platelet Count 158 x10^3/uL (140-400) Neutrophils (%) (Auto) 44 % (31-73) Lymphocytes (%) (Auto) 37 % (24-48) Monocytes (%) (Auto) 14 % (0-9) Eosinophils (%) (Auto) 5 % (0-3) Basophils (%) (Auto) 1 % (0-3) Neutrophils # (Auto) 2.2 x10^3uL (1.8-7.7) Lymphocytes # (Auto) 1.8 x10^3/uL (1.0-4.8) Monocytes # (Auto) 0.7 x10^3/uL (0.0-1.1) Eosinophils # (Auto) 0.2 x10^3/uL (0.0-0.7) Basophils # (Auto) 0.0 x10^3/uL (0.0-0.2) Physical Exam HEENT: Neck Supple W Full Motion, Other (left orbital contusion and facial cheek bruise and ecchymoses) Chest: Symmetric LUNGS: Clear to Auscultation Heart: S1S2 Abdomen: Soft N/T Neurology: alert, oriented Assessment Assessment 1. Traumatic mechanical fall; No LOC. No orthostasis. Tele notable for brief episode of 2nd degree type II heart block, otherwise NSR. Echo showed preserved LV systolic function with an EF of 55-60% and LVH 2. CAD: past stent, clinically stable. 3. HTN: controlled 4. HLP 5. Valvular insufficiency; echo with mild AR and MR Recommendations Stop BB Will arrange for event monitor, prior to discharge, for 3 weeks May discharge from a CV standpoint this afternoon Secondary prevention including ASA, Brilinta, BB F/u in our office with Dr. Fine in 4 weeks as scheduled. AISSATOU FINE MD 11/20/18 6423: CARDIO Progress Notes Assessment Assessment Patient seen and examined. Agree with FIRST COAT SANDER's assessment and plan. Fall appears to be mechanical Brief episode of Mobitz type II second-degree AV block noted on telemetry Agree with outpatient event monitor for further evaluation CAD status clinically stable Okay for discharge from cardiac standpoint EVAN SHARPE APRN Nov 20, 2018 11:31 AISSATOU FINE MD Nov 20, 2018 16:58
--- NOTE | 2018-11-20 14:18 | NUR ---
SS following for discharge planning. Pt is from [facility] and currently on room air. OT recommending alf unit. SS met with pt to discuss alf unit and discharge planning. Pt declined alf unit and reported that she will go back to her independent living apartment. Pt reported that she was previously put on services with [facility] and was agreeable to [facility] following her at home.
--- NOTE | 2018-11-20 14:45 | SNU/HH DC ---
DISCHARGE WITH HOME HEALTH DISCHARGE INFORMATION: Discharge Date: Nov 20, 2018 Final Diagnosis: Problems Medical Problems: (1) Contusion of face Status: Acute (2) Head injury Status: Acute (3) Syncope and collapse Status: Acute Condition on Discharge: Stable CODE STATUS: Code Status: DNR/DNI HOME HEALTH: Face to Face: I certify this patient is under my care and that I, or a nurse practitioner or physician's assistant associate full professor working with me, had a face to face encounter that meets the physician face to face encounter requirements with this patient on []. Medical Complications: CHF RN For Eval/Treatment: Yes Physical Therapy For: Evalulation/Treatment Occupational Therapy For: Evaluation/Treatment Pt Meets Homebound Status: Unsteady balance w/ amb, POST DISCHARGE ORDERS: Activity Instructions for Disc: No restrictions Weight Bearing Status after Di: No restrictions Bathing Instructions: No Tub Bath until see CHECKS AFTER DISCHARGE: Checks after discharge: Check blood press - daily TREATMENT/EQUIPMENT ORDERS: Adaptive Equipment Issued: None CERTIFICATION STATEMENT: Certification Statement: Certification Statement: Based on the above finding, I certify that this patient is confined to the home and needs intermittent mcc care, physical therapy and/or speech therapy, or continues to need occupational therapy.~ This patient is under my care, and I have initiated the establishment of the plan of care.~ This patient will be followed by myself or a community physician who will periodically review the plan of care. Home Meds Active Scripts Aspirin (ASPIRIN) 81 Mg Tab.chew, 1 TAB PO DAILY, #30 TAB 3 Refills Prov:JANES ESTRADA MD 01/01/18 Ticagrelor (BRILINTA) 90 Mg Tablet, 90 MG PO BID for 60 Days, #120 TAB Prov:JANES ESTRADA MD 01/01/18 Nitroglycerin (NITROSTAT) 0.4 Mg Tab.subl, 0.4 MG SL PRN Q5MIN PRN for CHEST PAIN, #10 TAB Prov:CAMILLE MCGREGOR MD 08/17/17 Reported Medications Atorvastatin Calcium (ATORVASTATIN CALCIUM) 10 Mg Tablet, 10 MG PO HS for FOR CHOLESTEROL, #30 TAB 0 Refills 11/19/18 Carvedilol (COREG ) 3.125 Mg Tablet, 3.125 MG PO BIDWMEALS for CARDIAC, TAB 11/19/18 Fluoxetine Hcl (FLUOXETINE HCL) 40 Mg Capsule, 1 CAP PO DAILYWBKFT, #30 CAP 2 Refills 08/12/17 Discontinued Reported Medications Atorvastatin Calcium (ATORVASTATIN CALCIUM) 40 Mg Tablet, 1 TAB PO DAILY, #30 TAB 5 Refills 12/30/17 SAIRA WEBER MD Nov 20, 2018 14:44
[2018-11-20 14:50] VITALS: BP 142/57
[2018-11-20] MEDS ORDERED: POLYETHYLENE GLYCOL 3350 17 GM PACKET. PO PRN (16:30)
--- NOTE | 2018-11-20 16:34 | PDOC2 ---
GI CONSULT Reason For Consult: N/v HPI: HPI: Pleasant 88 y/o female admitted after traumatic fall. DC held this afternoon for n/v and GI asked to see. RN, pt, and son Vitor provide history. Issues w/ n/v x 56 years - began after having some sort of resection/bypass. " I had ulcers in my esophagus and in my stomach and they took part of my stomach and esophagus and hooked my small colon up to my esophagus." Lived in [place], [place] at that the time but surgery performed @ [facility]. Moved from [place] to the area to be near her son last a couple years ago after having a heart attack. Son reports increased n/v for the past year. Occurs a couple hours after eating about twice weekly. Sometimes will avoid eating for a day or so after. Has lost 30 pounds in the past few months. Frequent nausea. Additional h/o "needing to belch" - treated w/ Dr. Hernandez. Denies reflux or heartburn but son says she has a h/o indigestion. Unclear dysphagia history - food "falls" into epigastrium and sits there. No odynophagia. No hematemesis. No abd pain. No diarrhea or constipation. No hematemesis, hematochezia, or melena. No previous EGD or colonoscopy. S/p cholecystectomy ("it was a big glob"). No liver or pancreas history. H/o CAD on Brilinta and ASA. Takes Extra Strength Tylenol, no NSAIDs. Today, emesis occurred after breakfast and lunch - son describes as a "huge clear bubble" and "lots of clear fluid." PMH: PMH: CAD w/ stents (7), HTN, valvular insufficiency, TIA, breast cancer s/p chemo, UE DVT appendectomy, cholecystectomy, right mastectomy, bilateral total knee replacements, cataract removal Social History: Smoke: No ALCOHOL: none Drugs: None ROS: GEN: Denies fevers, chills, sweats HEENT: Denies blurred vision, sore throat CV: Denies chest pain RESP: Denies shortness of air, cough GI: Per HPI : Denies hematuria, dysuria ENDO: Denies weight changes NEURO: Denies confusion, dizziness MSK: Denies weakness, joint pain/swelling SKIN: Denies jaundice, pruritus Vitals: Vitals: Vital Signs Date Time Temp Pulse Resp B/P (MAP) Pulse Ox O2 Delivery O2 Flow Rate FiO2 11/20/18 14:50 98.1 69 16 142/57 (85) 95 Room Air 98.1 Labs: Labs: Laboratory Tests Test 11/20/18 03:20 White Blood Count 4.9 x10^3/uL (4.0-11.0) Red Blood Count 4.00 x10^6/uL (3.50-5.40) Hemoglobin 11.9 g/dL (12.0-15.5) Hematocrit 36.2 % (36.0-47.0) Mean Corpuscular Volume 90 fL (79-100) Mean Corpuscular Hemoglobin 30 pg (25-35) Mean Corpuscular Hemoglobin Concent 33 g/dL (31-37) Red Cell Distribution Width 15.1 % (11.5-14.5) Platelet Count 158 x10^3/uL (140-400) Neutrophils (%) (Auto) 44 % (31-73) Lymphocytes (%) (Auto) 37 % (24-48) Monocytes (%) (Auto) 14 % (0-9) Eosinophils (%) (Auto) 5 % (0-3) Basophils (%) (Auto) 1 % (0-3) Neutrophils # (Auto) 2.2 x10^3uL (1.8-7.7) Lymphocytes # (Auto) 1.8 x10^3/uL (1.0-4.8) Monocytes # (Auto) 0.7 x10^3/uL (0.0-1.1) Eosinophils # (Auto) 0.2 x10^3/uL (0.0-0.7) Basophils # (Auto) 0.0 x10^3/uL (0.0-0.2) Allergies: Coded Allergies: Opioids - Morphine Analogues (Verified Allergy, Severe, Anaphylaxis, 08/12) Opioids-Meperidine and Related (Verified Allergy, Severe, Anaphylaxis, ) Opioids-Methadone and Related (Verified Allergy, Severe, Anaphylaxis, ) ciprofloxacin (Verified Allergy, Intermediate, Rash, 08/12/17) Medications: Current Medications Medications (Trade) Dose Ordered Sig/Yoko Route PRN Reason Start Time Stop Time Status Last Admin Dose Admin Senna/Docusate Sodium (Senna Plus) 1 tab BID PO 11/19/18 21:00 11/20/18 09:18 Ticagrelor (Brilinta) 90 mg BID PO 11/19/18 21:00 11/20/18 09:14 Atorvastatin Calcium (Lipitor) 10 mg HS PO 11/19/18 21:00 11/19/18 20:19 Carvedilol (Coreg) 3.125 mg BIDWMEALS PO 11/19/18 17:00 11/20/18 09:19 Imaging: Imaging: CXR IMPRESSION: No acute cardiopulmonary abnormality is detected. Left Knee X-Ray IMPRESSION: 1. Degenerative change. 2. No acute bony abnormality is detected. CT head/facial bones, C-spine IMPRESSION: 1. No evidence for acute intracranial process. 2. Changes of chronic small vessel disease. 3. Marked subcutaneous soft tissue swelling overlying the left frontal region. IMPRESSION: 1. Moderate soft tissue swelling overlying the left frontal region. No definite associated fracture or dislocation is identified. Echocardiogram <Conclusion> The left ventricle is normal size. The left ventricular systolic function is normal and the ejection fraction is within normal range. The Ejection Fraction is 55-60%. There is mild concentric left ventricular hypertrophy. There is no significant aortic valvular stenosis. Doppler and Color Flow revealed mild aortic regurgitation. Doppler and Color-flow revealed mild to moderate mitral regurgitation. Doppler and Color Flow revealed trace tricuspid regurgitation with an estimated PAP of 23 mmHg. PE: GEN: NAD HEENT: Atraumatic, PERRL LUNGS: CTAB HEART: RRR ABD: NABS, S/ND/NT EXTREMITY: No edema SKIN: ecchymosis left eye/face NEURO/PSYCH: A & O 3 A/P: A/P: S/p traumatic fall Chronic n/v - worse recently w/ weight loss Dyspepsia, ?dysphagia - improved w/ Dr. Hernandez S/p ?gastric resection/bypass - 56 years ago for "ulcers" CRC screen - none S/p cholecystectomy CAD on Brilinta and ASA Normocytic anemia H/o breast cancer -- PPI - IV for now, can transition to PO as able. KUB now and plan for UGI/SBS in [email or web address]. BERNICE VARGAS Nov 20, 2018 16:34
[2018-11-20] MEDS: PANTOPRAZOLE IV PUSH 40 MG VIAL. IVP SCH (18:49)
--- NOTE | 2018-11-20 19:09 | PDOC ---
PROGRESS NOTES Chief Complaint Chief Complaint Presyncopal episode Mechanical fall with subsequent left facial trauma Left gisela-face ecchymosis Essential hypertension History of coronary artery disease currently asymptomatic Holosystolic murmur TR on ECHO Intractable nausea and vomiting Plan: will follow results rec from senior product consultant will consult GI for intractable nausea and vomiting continue current medicaitons reassess int he am further recommendations based on clinical course. History of Present Illness History of Present Illness no new complaints, has had episodes of emesis throughout the day, she is in no acute distress at the time of my note nevertheless she will require evaluation by GI Vitals Vitals Vital Signs Date Time Temp Pulse Resp B/P (MAP) Pulse Ox O2 Delivery O2 Flow Rate FiO2 11/20/18 14:50 98.1 69 16 142/57 (85) 95 Room Air 98.1 Physical Exam General: Alert, Oriented X3, Cooperative, No acute distress Heart: Regular rate (SR), Normal S1, Normal S2, Other (3/6 sytolic murmur to LLS border) Lungs: Clear Abdomen: Soft, No tenderness Extremities: No cyanosis, No edema Skin: No breakdown, Other (left facial bruise) Labs LABS Laboratory Tests Test 11/20/18 03:20 White Blood Count 4.9 x10^3/uL (4.0-11.0) Red Blood Count 4.00 x10^6/uL (3.50-5.40) Hemoglobin 11.9 g/dL (12.0-15.5) Hematocrit 36.2 % (36.0-47.0) Mean Corpuscular Volume 90 fL (79-100) Mean Corpuscular Hemoglobin 30 pg (25-35) Mean Corpuscular Hemoglobin Concent 33 g/dL (31-37) Red Cell Distribution Width 15.1 % (11.5-14.5) Platelet Count 158 x10^3/uL (140-400) Neutrophils (%) (Auto) 44 % (31-73) Lymphocytes (%) (Auto) 37 % (24-48) Monocytes (%) (Auto) 14 % (0-9) Eosinophils (%) (Auto) 5 % (0-3) Basophils (%) (Auto) 1 % (0-3) Neutrophils # (Auto) 2.2 x10^3uL (1.8-7.7) Lymphocytes # (Auto) 1.8 x10^3/uL (1.0-4.8) Monocytes # (Auto) 0.7 x10^3/uL (0.0-1.1) Eosinophils # (Auto) 0.2 x10^3/uL (0.0-0.7) Basophils # (Auto) 0.0 x10^3/uL (0.0-0.2) Assessment and Plan Assessmemt and Plan Problems Medical Problems: (1) Contusion of face Status: Acute (2) Head injury Status: Acute (3) Syncope and collapse Status: Acute Comment Review of Relevant I have reviewed the following items low (where applicable) has been applied. Labs Laboratory Tests Test 11/19/18 10:15 11/19/18 11:25 11/20/18 03:20 White Blood Count 4.8 x10^3/uL (4.0-11.0) 4.9 x10^3/uL (4.0-11.0) Red Blood Count 4.29 x10^6/uL (3.50-5.40) 4.00 x10^6/uL (3.50-5.40) Hemoglobin 12.6 g/dL (12.0-15.5) 11.9 g/dL (12.0-15.5) Hematocrit 38.4 % (36.0-47.0) 36.2 % (36.0-47.0) Mean Corpuscular Volume 89 fL (79-100) 90 fL (79-100) Mean Corpuscular Hemoglobin 29 pg (25-35) 30 pg (25-35) Mean Corpuscular Hemoglobin Concent 33 g/dL (31-37) 33 g/dL (31-37) Red Cell Distribution Width 15.1 % (11.5-14.5) 15.1 % (11.5-14.5) Platelet Count 170 x10^3/uL (140-400) 158 x10^3/uL (140-400) Neutrophils (%) (Auto) 55 % (31-73) 44 % (31-73) Lymphocytes (%) (Auto) 30 % (24-48) 37 % (24-48) Monocytes (%) (Auto) 10 % (0-9) 14 % (0-9) Eosinophils (%) (Auto) 4 % (0-3) 5 % (0-3) Basophils (%) (Auto) 1 % (0-3) 1 % (0-3) Neutrophils # (Auto) 2.6 x10^3uL (1.8-7.7) 2.2 x10^3uL (1.8-7.7) Lymphocytes # (Auto) 1.4 x10^3/uL (1.0-4.8) 1.8 x10^3/uL (1.0-4.8) Monocytes # (Auto) 0.5 x10^3/uL (0.0-1.1) 0.7 x10^3/uL (0.0-1.1) Eosinophils # (Auto) 0.2 x10^3/uL (0.0-0.7) 0.2 x10^3/uL (0.0-0.7) Basophils # (Auto) 0.0 x10^3/uL (0.0-0.2) 0.0 x10^3/uL (0.0-0.2) Prothrombin Time 14.6 SEC (11.7-14.0) Prothromb Time International Ratio 1.2 (0.8-1.1) Activated Partial Thromboplast Time 32 SEC (24-38) Sodium Level 142 mmol/L (136-145) Potassium Level 4.0 mmol/L (3.5-5.1) Chloride Level 108 mmol/L (98-107) Carbon Dioxide Level 23 mmol/L (21-32) Anion Gap 11 (6-14) Blood Urea Nitrogen 11 mg/dL (7-20) Creatinine 0.7 mg/dL (0.6-1.0) Estimated GFR (Cockcroft-Gault) 79.2 BUN/Creatinine Ratio 16 (6-20) Glucose Level 102 mg/dL (70-99) Calcium Level 8.6 mg/dL (8.5-10.1) Magnesium Level 2.1 mg/dL (1.8-2.4) Total Bilirubin 0.7 mg/dL (0.2-1.0) Aspartate Amino Transf (AST/SGOT) 21 U/L (15-37) Alanine Aminotransferase (ALT/SGPT) 17 U/L (14-59) Alkaline Phosphatase 60 U/L (46-116) Creatine Kinase 68 U/L (26-192) Creatine Kinase MB (Mass) 2.0 ng/mL (0.0-3.6) Creatine Kinase MB Relative Index % (0-4) Troponin I Quantitative 0.044 ng/mL (0.000-0.055) MO-Cdx-W-Type Natriuretic Peptide 1520 pg/mL (0-449) Total Protein 6.6 g/dL (6.4-8.2) Albumin 3.0 g/dL (3.4-5.0) Albumin/Globulin Ratio 0.8 (1.0-1.7) Urine Collection Type Unknown Urine Color Yellow Urine Clarity Clear Urine pH 6.0 Urine Specific [place] 1.015 Urine Protein Negative mg/dL (NEG-TRACE) Urine Glucose (UA) Negative mg/dL (NEG) Urine Ketones (Stick) Negative mg/dL (NEG) Urine Blood Negative (NEG) Urine Nitrite Negative (NEG) Urine Bilirubin Negative (NEG) Urine Urobilinogen Dipstick 0.2 mg/dL (0.2 mg/dL) Urine Leukocyte Esterase Negative (NEG) Urine RBC Occ /HPF (0-2) Urine WBC Occ /HPF (0-4) Urine Squamous Epithelial Cells Few /LPF Urine Bacteria Few /HPF (0-FEW) Laboratory Tests Test 11/20/18 03:20 White Blood Count 4.9 x10^3/uL (4.0-11.0) Red Blood Count 4.00 x10^6/uL (3.50-5.40) Hemoglobin 11.9 g/dL (12.0-15.5) Hematocrit 36.2 % (36.0-47.0) Mean Corpuscular Volume 90 fL (79-100) Mean Corpuscular Hemoglobin 30 pg (25-35) Mean Corpuscular Hemoglobin Concent 33 g/dL (31-37) Red Cell Distribution Width 15.1 % (11.5-14.5) Platelet Count 158 x10^3/uL (140-400) Neutrophils (%) (Auto) 44 % (31-73) Lymphocytes (%) (Auto) 37 % (24-48) Monocytes (%) (Auto) 14 % (0-9) Eosinophils (%) (Auto) 5 % (0-3) Basophils (%) (Auto) 1 % (0-3) Neutrophils # (Auto) 2.2 x10^3uL (1.8-7.7) Lymphocytes # (Auto) 1.8 x10^3/uL (1.0-4.8) Monocytes # (Auto) 0.7 x10^3/uL (0.0-1.1) Eosinophils # (Auto) 0.2 x10^3/uL (0.0-0.7) Basophils # (Auto) 0.0 x10^3/uL (0.0-0.2) Medications Current Medications Ondansetron HCl (Zofran) 4 mg PRN Q8HRS PRN IV NAUSEA/VOMITING; Start 11/19/18 at 13:15; Stop 11/20/18 at 10:06; Status DC Ondansetron HCl (Zofran) 4 mg PRN Q6HRS PRN IV NAUSEA/VOMITING Last administered on 11/20/18at 14:01; Start 11/19/18 at 13:15 Zolpidem Tartrate (Ambien) 5 mg PRN QHS PRN PO INSOMNIA, MAY REPEAT IN 1HR Last administered on 11/19/18at 20:58; Start 11/19/18 at 13:15 Info (Non-Icu Electrolyte Protocol) 1 ea PRN DAILY PRN MC SEE COMMENTS; Start 11/19/18 at 13:15 Morphine Sulfate (Morphine Sulfate) 1 mg PRN Q1HR PRN IV PAIN; Start 11/19/18 at 13:15; Stop 11/19/18 at 13:49; Status DC Oxycodone/ Acetaminophen (Percocet 5/325) 1 tab PRN Q4HRS PRN PO MILD PAIN, 1ST CHOICE; Start 11/19/18 at 13:15; Stop 11/19/18 at 13:49; Status DC Acetaminophen (Tylenol) 650 mg PRN Q6HRS PRN PO Headaches, Temp > 101.5F Last administered on 11/19/18at 17:02; Start 11/19/18 at 13:15 Senna/Docusate Sodium (Senna Plus) 1 tab BID PO Last administered on 11/20/18at 09:18; Start 11/19/18 at 21:00 Lactulose (Lactulose) 20 gm PRN Q12HR PRN PO CONSTIPATION; Start 11/19/18 at 13: 15 Heparin Sodium (Porcine) (Heparin Sodium) 5,000 unit Q12HR SQ Last administered on 11/20/18 09:22; Start 11/19/18 at 14:30 Aspirin (Children'S Aspirin) 81 mg DAILY PO Last administered on 11/20/18at 09:14 ; Start 11/19/18 at 15:00 Atorvastatin Calcium (Lipitor) 40 mg QHS PO ; Start 11/20/18 at 09:00; Status Cancel Metoprolol Succinate (Toprol Xl) 12.5 mg DAILY PO ; Start 11/19/18 at 15:00; Stop 11/19/18 at 16:35; Status DC Nitroglycerin (Nitrostat) 0.4 mg PRN Q5MIN PRN SL CHEST PAIN; Start 11/19/18 at 13:15 Ticagrelor (Brilinta) 90 mg BID PO Last administered on 11/20/18at 09:14; Start 11/19/18 at 21:00 Fluoxetine HCl (PROzac) 40 mg DAILYWBKFT PO Last administered on 11/20/18at 09:14 ; Start 11/19/18 at 15:00 Fentanyl Citrate (Fentanyl 2ml Vial) 25 mcg PRN Q2HRS PRN IV MODERATE TO SEVERE PAIN; Start 11/19/18 at 14:00 Atorvastatin Calcium (Lipitor) 10 mg HS PO Last administered on 11/19/18at 20:19 ; Start 11/19/18 at 21:00 Carvedilol (Coreg) 3.125 mg BIDWMEALS PO Last administered on 11/20/18 09:19; Start 11/19/18 at 17:00; Stop 11/20/18 at 18:33; Status DC Pantoprazole Sodium (PROTONIX VIAL for IV PUSH) 40 mg BIDAC IVP Last administered on 11/20/18at 18:49; Start 11/20/18 at 16:30 Polyethylene Glycol (miraLAX PACKET) 17 gm PRN DAILY PRN PO CONSTIPATION; Start 11/20/18 at 16:30 Active Scripts Active Aspirin 81 Mg Tab.chew 1 Tab PO DAILY Brilinta (Ticagrelor) 90 Mg Tablet 90 Mg PO BID 60 Days Nitrostat (Nitroglycerin) 0.4 Mg Tab.subl 0.4 Mg SL PRN Q5MIN PRN Reported Atorvastatin Calcium 10 Mg Tablet 10 Mg PO HS Fluoxetine Hcl 40 Mg Capsule 1 Cap PO DAILYWBKFT Vitals/I & O Vital Sign - Last 24 Hours 11/19/18 11/19/18 11/19/18 11/20/18 19:16 19:37 22:40 03:52 Temp 97.9 98.0 97.6 97.9 98.0 97.6 Pulse 61 64 62 Resp 16 16 16 B/P (MAP) 114/43 (66) 123/41 (68) 121/41 (67) Pulse Ox 95 95 95 O2 Delivery Room Air Room Air Room Air Room Air 11/20/18 11/20/18 11/20/18 11/20/18 07:00 08:00 09:19 10:48 Temp 97.3 98.2 97.3 98.2 Pulse 62 61 70 Resp 16 16 B/P (MAP) 122/46 (71) 134/42 115/49 (71) Pulse Ox 97 96 O2 Delivery Room Air Room Air Room Air 11/20/18 14:50 Temp 98.1 98.1 Pulse 69 Resp 16 B/P (MAP) 142/57 (85) Pulse Ox 95 O2 Delivery Room Air Intake and Output 11/19/18 11/19/18 11/20/18 15:00 23:00 07:00 Intake Total 440 ml 200 ml Output Total 600 ml 250 ml Balance -160 ml -50 ml SAIRA WEBER MD Nov 20, 2018 19:09
[2018-11-20 19:14] VITALS: BP 144/72
[2018-11-20] MEDS: ATORVASTATIN CALCIUM 10 MG TABLET. PO SCH (21:00)
[2018-11-20 23:05] VITALS: BP 115/46
[2018-11-21 03:31] VITALS: BP 110/48
--- NOTE | 2018-11-21 03:42 | RAD ---
One view abdomen pelvis 7:19 PM HISTORY: Nausea and vomiting and history of cholecystectomy and appendectomy Supine AP view abdomen pelvis There is air and stool scattered throughout the colon. The paucity small bowel gas. There is no obvious free air. There is multiple suture line seen throughout the abdomen. IMPRESSION: Nonobstructive bowel gas pattern. Electronically signed by: Eamon Schultz III, MD (11/21/2018 3:40 AM) [id number]
[2018-11-21 07:00] VITALS: BP 111/50
[2018-11-21] MEDS ORDERED: SIMETHICONE/SOD BICARB/CITRIC ACID PACKET. PO ONE (07:15)
[2018-11-21] MEDS ORDERED: BARIUM SULFATE 60% 355 ML SUSP PO ONE (07:15)
[2018-11-21] MEDS ORDERED: BARIUM SULFATE 340 GM SUSPENSION. PO ONE (07:15)
--- NOTE | 2018-11-21 10:04 | PDOC ---
Objective: Vital Signs: Vital Signs Date Time Temp Pulse Resp B/P (MAP) Pulse Ox O2 Delivery O2 Flow Rate FiO2 11/21/18 07:00 97.8 85 18 111/50 (70) 96 Room Air 97.8 Imaging: UGI/SBS pending PE: out of room A/P: Chronic n/v, dyspepsia, h/o gastric resection Normocytic anemia -- Await imaging results - okay to try eating after and consider DC if tolerates - she indicated desire for conservative approach yesterday. Would continue PPI. BERNICE VARGAS Nov 21, 2018 10:04
[2018-11-21] MEDS: ASPIRIN CHEWABLE 81 MG TABLET. PO SCH (12:52)
[2018-11-21] MEDS: SENNOSIDES/DOCUSATE 8.6/50MG TABLET. PO SCH ×2 (12:52→21:22)
[2018-11-21] MEDS: FLUoxetine HCL 20 MG CAPSULE PO SCH (12:52)
[2018-11-21] MEDS: PANTOPRAZOLE IV PUSH 40 MG VIAL. IVP SCH ×2 (12:52→18:40)
[2018-11-21] MEDS: TICAGRELOR 90 MG TABLET. PO SCH ×2 (12:52→21:22)
[2018-11-21] MEDS: HEPARIN for SUB-Q USE 5,000 UNIT/ML VIAL. SQ SCH ×2 (12:53→21:24)
--- NOTE | 2018-11-21 13:03 | RAD ---
Upper GI with small bowel follow-through, 11/21/2018: History: Nausea and vomiting, previous gastric and esophageal surgeries The study was performed using thin liquid barium. 4.1 minutes of fluoroscopy time was utilized. 23 static and dynamic fluoroscopic sequences were recorded. The preliminary abdominal image demonstrates a nonspecific gas pattern. There are surgical wires and clips projected over the abdomen. Coronary artery stents are evident. The swallowing mechanism is intact. By history there has been previous esophageal resection. 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 There is retained food mixed with the contrast. Eventually the contrast does extend beneath the diaphragm into small bowel. The contrast then extends from small bowel into what appears to be the distal stomach. The patient does relate a history of previous partial gastrectomy in addition to partial esophagectomy with complex surgery. Contrast then extends into the duodenum which shows no abnormality. The mid and distal small bowel loops are unremarkable. Contrast reached the colon at 90 minutes. The terminal ileum shows no abnormality. IMPRESSION: 1. Previous partial esophagectomy and partial gastrectomy with elevation of what is presumably interposed small bowel into the chest. Correlation with the patient's precise surgical history is suggested. 2. Considerable stasis of contrast and retained food in the thoracic esophagus/interposed bowel. 3. The abdominal and pelvic small bowel loops are unremarkable without evidence of obstruction.
--- NOTE | 2018-11-21 14:19 | PDOC ---
PROGRESS NOTES Chief Complaint Chief Complaint Presyncopal episode Mechanical fall with subsequent left facial trauma Left gisela-face ecchymosis Essential hypertension History of coronary artery disease currently asymptomatic Holosystolic murmur TR on ECHO Intractable nausea and vomiting Plan: will follow results rec from physician practice consultant EGD in the am as per wound care center consultant, discussed results from upper GI series. continue current medications reassess int he am History of Present Illness History of Present Illness no new complaints, has had episodes of emesis throughout the day, she is in no acute distress at the time of my note nevertheless she will require evaluation by GI Vitals Vitals Vital Signs Date Time Temp Pulse Resp B/P (MAP) Pulse Ox O2 Delivery O2 Flow Rate FiO2 11/21/18 08:00 Room Air 11/21/18 07:00 97.8 85 18 111/50 (70) 96 97.8 Physical Exam General: Alert, Oriented X3, Cooperative, No acute distress Heart: Regular rate (SR), Normal S1, Normal S2, Other (3/6 sytolic murmur to LLS border) Lungs: Clear Abdomen: Soft, No tenderness Extremities: No cyanosis, No edema Skin: No breakdown, Other (left facial bruise) Assessment and Plan Assessmemt and Plan Problems Medical Problems: (1) Contusion of face Status: Acute (2) Head injury Status: Acute (3) Syncope and collapse Status: Acute Comment Review of Relevant I have reviewed the following items low (where applicable) has been applied. Labs Laboratory Tests Test 11/20/18 03:20 White Blood Count 4.9 x10^3/uL (4.0-11.0) Red Blood Count 4.00 x10^6/uL (3.50-5.40) Hemoglobin 11.9 g/dL (12.0-15.5) Hematocrit 36.2 % (36.0-47.0) Mean Corpuscular Volume 90 fL (79-100) Mean Corpuscular Hemoglobin 30 pg (25-35) Mean Corpuscular Hemoglobin Concent 33 g/dL (31-37) Red Cell Distribution Width 15.1 % (11.5-14.5) Platelet Count 158 x10^3/uL (140-400) Neutrophils (%) (Auto) 44 % (31-73) Lymphocytes (%) (Auto) 37 % (24-48) Monocytes (%) (Auto) 14 % (0-9) Eosinophils (%) (Auto) 5 % (0-3) Basophils (%) (Auto) 1 % (0-3) Neutrophils # (Auto) 2.2 x10^3uL (1.8-7.7) Lymphocytes # (Auto) 1.8 x10^3/uL (1.0-4.8) Monocytes # (Auto) 0.7 x10^3/uL (0.0-1.1) Eosinophils # (Auto) 0.2 x10^3/uL (0.0-0.7) Basophils # (Auto) 0.0 x10^3/uL (0.0-0.2) Medications Current Medications Ondansetron HCl (Zofran) 4 mg PRN Q8HRS PRN IV NAUSEA/VOMITING; Start 11/19/18 at 13:15; Stop 11/20/18 at 10:06; Status DC Ondansetron HCl (Zofran) 4 mg PRN Q6HRS PRN IV NAUSEA/VOMITING Last administered on 11/20/18at 14:01; Start 11/19/18 at 13:15 Zolpidem Tartrate (Ambien) 5 mg PRN QHS PRN PO INSOMNIA, MAY REPEAT IN 1HR Last administered on 11/19/18at 20:58; Start 11/19/18 at 13:15 Info (Non-Icu Electrolyte Protocol) 1 ea PRN DAILY PRN MC SEE COMMENTS; Start 11/19/18 at 13:15 Morphine Sulfate (Morphine Sulfate) 1 mg PRN Q1HR PRN IV PAIN; Start 11/19/18 at 13:15; Stop 11/19/18 at 13:49; Status DC Oxycodone/ Acetaminophen (Percocet 5/325) 1 tab PRN Q4HRS PRN PO MILD PAIN, 1ST CHOICE; Start 11/19/18 at 13:15; Stop 11/19/18 at 13:49; Status DC Acetaminophen (Tylenol) 650 mg PRN Q6HRS PRN PO Headaches, Temp > 101.5F Last administered on 11/19/18at 17:02; Start 11/19/18 at 13:15 Senna/Docusate Sodium (Senna Plus) 1 tab BID PO Last administered on 11/21/18at 12:52; Start 11/19/18 at 21:00 Lactulose (Lactulose) 20 gm PRN Q12HR PRN PO CONSTIPATION, 2ND CHOICE; Start at 13:15 Heparin Sodium (Porcine) (Heparin Sodium) 5,000 unit Q12HR SQ Last administered on 11/21/18 12:53; Start 11/19/18 at 14:30 Aspirin (Children'S Aspirin) 81 mg DAILY PO Last administered on 11/21/18 12:52 ; Start 11/19/18 at 15:00 Atorvastatin Calcium (Lipitor) 40 mg QHS PO ; Start 11/20/18 at 09:00; Status Cancel Metoprolol Succinate (Toprol Xl) 12.5 mg DAILY PO ; Start 11/19/18 at 15:00; Stop 11/19/18 at 16:35; Status DC Nitroglycerin (Nitrostat) 0.4 mg PRN Q5MIN PRN SL CHEST PAIN; Start 11/19/18 at 13:15 Ticagrelor (Brilinta) 90 mg BID PO Last administered on 11/21/18 12:52; Start 11/19/18 at 21:00 Fluoxetine HCl (PROzac) 40 mg DAILYWBKFT PO Last administered on 11/21/18 12:52 ; Start 11/19/18 at 15:00 Fentanyl Citrate (Fentanyl 2ml Vial) 25 mcg PRN Q2HRS PRN IV MODERATE TO SEVERE PAIN; Start 11/19/18 at 14:00 Atorvastatin Calcium (Lipitor) 10 mg HS PO Last administered on 11/19/18 20:19 ; Start 11/19/18 at 21:00 Carvedilol (Coreg) 3.125 mg BIDWMEALS PO Last administered on 11/20/18 09:19; Start 11/19/18 at 17:00; Stop 11/20/18 at 18:33; Status DC Pantoprazole Sodium (PROTONIX VIAL for IV PUSH) 40 mg BIDAC IVP Last administered on 11/21/18 12:52; Start 11/20/18 at 16:30 Polyethylene Glycol (miraLAX PACKET) 17 gm PRN DAILY PRN PO CONSTIPATION, 1ST CHOICE; Start 11/20/18 at 16:30 Barium Sulfate (Liquid E-Z Paque) 710 ml 1X ONCE PO Last administered on 4/4/ 19at 09:17; Start 11/21/18 at 07:15; Stop 11/21/18 at 07:16; Status DC Barium Sulfate (E-Z-Hd) 340 gm 1X ONCE PO ; Start 11/21/18 at 07:15; Stop at 07:17; Status DC Simethicone/ Sodium Bicarb/ Citric Ac (E-Z-Gas) 1 packet 1X ONCE PO ; Start 11/21/18 at 07:15; Stop 11/21/18 at 07:17; Status DC Active Scripts Active Aspirin 81 Mg Tab.chew 1 Tab PO DAILY Brilinta (Ticagrelor) 90 Mg Tablet 90 Mg PO BID 60 Days Nitrostat (Nitroglycerin) 0.4 Mg Tab.subl 0.4 Mg SL PRN Q5MIN PRN Reported Atorvastatin Calcium 10 Mg Tablet 10 Mg PO HS Fluoxetine Hcl 40 Mg Capsule 1 Cap PO DAILYWBKFT Vitals/I & O Vital Sign - Last 24 Hours 11/20/18 11/20/18 11/20/18 11/20/18 14:50 19:14 20:00 23:05 Temp 98.1 98.6 98.2 98.1 98.6 98.2 Pulse 69 79 74 Resp 16 16 16 B/P (MAP) 142/57 (85) 144/72 (96) 115/46 (69) Pulse Ox 95 96 95 O2 Delivery Room Air Room Air Room Air Room Air 11/21/18 11/21/18 11/21/18 03:31 07:00 08:00 Temp 97.9 97.8 97.9 97.8 Pulse 72 85 Resp 16 18 B/P (MAP) 110/48 (68) 111/50 (70) Pulse Ox 95 96 O2 Delivery Room Air Room Air Room Air Intake and Output 11/20/18 11/20/18 11/21/18 14:59 22:59 06:59 Intake Total 120 ml 0 ml Output Total 100 ml Balance -100 ml 120 ml 0 ml SAIRA WEBER MD Nov 21, 2018 14:19
[2018-11-21 15:00] VITALS: BP 105/38
[2018-11-21 19:50] VITALS: BP 94/34
[2018-11-21] MEDS: ATORVASTATIN CALCIUM 10 MG TABLET. PO SCH (21:22)
[2018-11-21 22:47] VITALS: BP 87/34
[2018-11-22 02:17] VITALS: BP 117/38
[2018-11-22] MEDS ORDERED: IV RINGERS,LACTATED 1000ML 1,000 ML IV SCH (07:00)
[2018-11-22 07:31] VITALS: BP 120/56
[2018-11-22] MEDS: IV RINGERS,LACTATED 1000ML 1,000 ML IV SCH ×2 (07:56→15:07)
[2018-11-22] MEDS ORDERED: MIDAZOLAM HCL/PF 2 MG/2 ML VIAL. IV PRN (08:00)
[2018-11-22] MEDS ORDERED: fentaNYL PF VIAL 100 MCG/2 ML VIAL IV PRN ×2 (08:00)
[2018-11-22] MEDS ORDERED: LIDOCAINE 1% PF 2 ML VIAL. ID PRN (08:00)
[2018-11-22] MEDS: PANTOPRAZOLE IV PUSH 40 MG VIAL. IVP SCH (08:13)
[2018-11-22 10:39] VITALS: BP 111/40
[2018-11-22] MEDS ORDERED: LIDOCAINE 2% PF 5 ML VIAL. ONE (11:32)
[2018-11-22] MEDS ORDERED: PROPOFOL 20 ML IV ONE (11:32)
--- NOTE | 2018-11-22 11:49 | PDOC4 ---
Operative Note Operative Note EGD with biopsies Meds propofol per anesthesia Pre-op dx dysphagia/abnl GI xray Post-op dx s/p gastric bypass/resection mild esophagitis s/p bx patent jejunal limb Plan resume diet and medications JEFFERSON HARRIS MD Nov 22, 2018 11:49
--- NOTE | 2018-11-22 12:09 | PDOC3 ---
Discharge Summary Visit Information Date of Admission: Nov 19, 2018 Date of Discharge: Nov 22, 2018 Admitting Diagnosis: presyncopal episode Final Diagnosis Problems Medical Problems: (1) Contusion of face Status: Acute (2) Head injury Status: Acute (3) Syncope and collapse Status: Acute Brief Hospital Course Allergies Allergies Coded Allergies Type Severity Reaction Last Updated Verified Opioids - Morphine Analogues Allergy Severe Anaphylaxis 11/22/18 Yes Opioids-Meperidine and Related Allergy Severe Anaphylaxis 11/22/18 Yes Opioids-Methadone and Related Allergy Severe Anaphylaxis 11/22/18 Yes ciprofloxacin Allergy Intermediate Rash 11/22/18 Yes Vital Signs Vital Signs Date Time Temp Pulse Resp B/P (MAP) Pulse Ox O2 Delivery O2 Flow Rate FiO2 11/22/18 12:00 80 18 124/59 96 11/22/18 11:45 Room Air 2 11/22/18 10:59 97.8 97.8 Brief Hospital Course Ms. Cornelius is a 88 old female who presented with preseyncopal episode, she was seen in consultation by cardiology and her beta hal was discontinued, no other changes to her medications were done. Patient was ready to be dismissed when she presented an emetic episode which she has had in the past, her family was concerned the episodes had become more frequent, GI consultation was requested and EGD performed for her history of recurrent emesis. Stricture was suspected but forutnately thsi was not the case, she may have motility problems. Will follow recommendations from process improvement consultant. At the time of my note the patient is seen in the recovery area. Discussed with son at bedside. all concerns addressed to the best ofmy abilities. she may be able to be discharged later once final recommendations have been given by process improvement consultant. Discharge Information Condition at Discharge: Improved Follow Up: Weeks Disposition/Orders: D/C to Home Scheduled Aspirin (Aspirin) 81 Mg Tab.chew, 1 TAB PO DAILY, #30 Ref 3 Prescribed by: JANES ESTRADA on 01/01/18 1054 Last Action: Continued on 11/19/18 1314 by SAIRA WEBER MD Atorvastatin Calcium (Atorvastatin Calcium) 10 Mg Tablet, 10 MG PO HS for FOR CHOLESTEROL, #30 Ref 0 (Reported) Entered as Reported by: AB GONZALEZ on 11/19/18 1631 Last Action: Continued on 11/19/18 1635 by AB GONZALEZ Fluoxetine Hcl (Fluoxetine Hcl) 40 Mg Capsule, 1 CAP PO DAILYWBKFT, #30 Ref 2 ( Reported) Entered as Reported by: HERIBERTO MENARD on 08/12/17 1258 Last Action: Converted on 11/19/181313 by SAIRA WEBER MD Ticagrelor (Brilinta) 90 Mg Tablet, 90 MG PO BID for 60 Days, #120 Prescribed by: JANES ESTRADA on 01/01/18 1054 Last Action: Continued on 11/19/181313 by SAIRA WEBER MD Scheduled PRN Nitroglycerin (Nitrostat) 0.4 Mg Tab.subl, 0.4 MG SL PRN Q5MIN PRN for CHEST PAIN, #10 Prescribed by: CAMILLE MCGREGOR MD on 08/17/17 1240 Last Action: Continued on 11/19/181313 by SAIRA WEBER MD Discontinued Medications Atorvastatin Calcium (Atorvastatin Calcium) 40 Mg Tablet, 1 TAB PO DAILY, #30 Ref 5 (Reported) Entered as Reported by: MICHELL JACKSON on 12/30/17 0440 Last Action: Discontinued on 11/19/181630 by AB GONZALEZ Carvedilol (Coreg ) 3.125 Mg Tablet, 3.125 MG PO BIDWMEALS for CARDIAC, ( Reported) Entered as Reported by: AB GONZALEZ on 11/19/18 1631 Last Action: Continued on 11/19/181634 by SAIRA ADAMS MD Nov 22, 2018 12:09
[2018-11-22] MEDS: FLUoxetine HCL 20 MG CAPSULE PO SCH (13:47)
[2018-11-22] MEDS: ASPIRIN CHEWABLE 81 MG TABLET. PO SCH (13:47)
[2018-11-22] MEDS: TICAGRELOR 90 MG TABLET. PO SCH (13:47)
[2018-11-22] MEDS: SENNOSIDES/DOCUSATE 8.6/50MG TABLET. PO SCH (13:49)
[2018-11-22] MEDS: HEPARIN for SUB-Q USE 5,000 UNIT/ML VIAL. SQ SCH (13:50)
--- NOTE | 2018-11-22 14:55 | NUR ---
SS following up with discharge planning. SS phoned and faxed clinical to [facility], ; fax [phone]. SS will await discharge orders for home healthcare and will fax once received.
[2018-11-22 15:00] VITALS: BP 96/51
--- NOTE | 2018-11-22 17:47 | NUR ---
Discharge Note: [facility] Discharge instructions and discharge home medications reviewed with Patient and a copy given. All questions have been answered and understanding verbalized. The following instructions and handouts were given: Syncope, Discontinued lines and drains: R forearm peripheral IV discontinued, no bleeding or bruising, catheter tip intact. Patient discharged to home for self-care, fup w/Dr. Fine 12/27/18@1030, and outpatient reference librarian applied and instructions reviewed.
[2018-11-23] MEDS ORDERED: PANTOPRAZOLE 40 MG TABLET.DR. PO SCH (07:30)
--- NOTE | 2018-11-25 16:07 | PATHOLOGY ---
[facility] Accession Number: [id number] . 01 Material submitted: . BIOPSY GE JUNCTION . 01 Clinical history: . Dysphagia . 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 (JPM:doreen; 11/25/2018) QMS/11/25/2018 . 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 There are also several segments of glandular mucosa of small intestine type showing mild to moderate active chronic inflammation. There is no dysplasia or evidence of malignancy. (JPM:doreen; 11/25/2018) . 02 Electronically signed: . Apolinar Lakhani MD, Pathologist NPI- [id number] . 01 Gross description: . Received in formalin labeled "Meche Cornelius, BX gastroesophageal junction," are 4 segments of carmichael soft tissue measuring 1.5 x 0.9 x 0.3 cm in aggregate dimensions and ranging from 0.3 to 0.5 cm in maximum dimension. The specimen is submitted entirely in cassette A1. (TSD; 11/22/2018) TOB/TOB . 02 Pathologist provided ICD-10: K22.70, K20.8 . 02 CPT . 069896 Specimen Comment: A courtesy copy of this report has been sent to Specimen Comment: [phone], , , . Specimen Comment: Report sent to ,DR WEBER,DR VALENCIA / DR BUENROSTRO Performed at: [address] [facility] [address], [place], [place] [id number] MD Perry Bryson MD Phone: [phone] Performed at: 02 [facility] [address] [place], [place] [id number] MD Apolinar Lakhani MD Phone: [phone]
== END 2018-11-22 17:35 | disposition home health service (06) | DRG 74 ==
LOC: ER 09:42 → 2 SOUTH 12:57
PROVIDERS: ADMIT Internal Medicine; ATTEND Internal Medicine
PROC: 0DB58ZX Excision of Esophagus, Via Natural or Artificial Opening Endoscopic, Diagnostic (ICD-10-PCS; principal; 2018-11-22 11:30)
DX: G90.8 Other disorders of autonomic nervous system (principal); E44.0 Moderate protein-calorie malnutrition; S00.83XA Contusion of other part of head, initial encounter; I25.10 Atherosclerotic heart disease of native coronary artery without angina pectoris; F32.9 Major depressive disorder, single episode, unspecified; I10 Essential (primary) hypertension; E78.5 Hyperlipidemia, unspecified; I34.0 Nonrheumatic mitral (valve) insufficiency; I45.9 Conduction disorder, unspecified; D64.9 Anemia, unspecified; K21.0 Gastro-esophageal reflux disease with esophagitis; M48.02 Spinal stenosis, cervical region; M19.90 Unspecified osteoarthritis, unspecified site; Z96.653 Presence of artificial knee joint, bilateral; Z98.84 Bariatric surgery status; W22.01XA Walked into wall, initial encounter; Y93.89 Activity, other specified; Z86.73 Personal history of transient ischemic attack (TIA), and cerebral infarction without residual deficits; Z85.3 Personal history of malignant neoplasm of breast; Z95.5 Presence of coronary angioplasty implant and graft; Z88.6 Allergy status to analgesic agent; Z88.1 Allergy status to other antibiotic agents; Z90.13 Acquired absence of bilateral breasts and nipples; Z92.21 Personal history of antineoplastic chemotherapy; Y92.89 Other specified places as the place of occurrence of the external cause; Y99.8 Other external cause status
CPT/HCPCS: 36415; 43239; 70450; 70486; 71045; 72125; 73562; 74018; 74249; 80053; 81001; 82553; 83735; 83880; 84484; 85025; 85610; 85730; 88305; 93005; 93306; C9113; J1644; J2001; J2405; J2704; J7120; 97110; 97116; 97530; 97535; 99285-25

== ENCOUNTER → 2020-01-01 | Outpatient (CLI) | payer MEDICARE ==
[~2020-01-01] MED LIST changes: +CARV3.12 PO; -NITR0.4T SL; +NITR0.4T24 SL
[2020-01-01] MEDS: REGADENOSON 0.4 MG/5 ML DISP.SYRIN. IV ONE (11:38)
--- NOTE | 2020-01-01 11:49 | CARD ---
MR#: [id number] Date of Study: 01/01/2020 Ordering Physician: AISSATOU BOJORQUEZ, Referring Physician: AISSATOU BOJORQUEZ Tech: Rosmery Rodriguez RDCS APPROVED REPORT EXAM: Two-dimensional and M-mode echocardiogram with Doppler and color Doppler. Other Information Quality : Good INDICATION Cardiac Disease: CAD 2D DIMENSIONS RVDd2.6 (2.9-3.5cm)Left Atrium(2D)3.7 (1.6-4.0cm) IVSd1.3 (0.7-1.1cm)Aortic Root(2D)2.9 (2.0-3.7cm) LVDd3.9 (3.9-5.9cm)LVOT Diameter2.0 (1.8-2.4cm) PWd1.0 (0.7-1.1cm)LVDs3.1 (2.5-4.0cm) FS (%) 20.9 %SV28.8 ml Aortic Valve AoV Peak Elvin.174.0cm/sAoV VTI37.8cm AO Peak GR.12.1mmHgLVOT Peak Elvin.64.6cm/s AO Mean GR.8mmHgAVA (VMAX)1.16cm2 AI P 1/2 Ipnm554js Mitral Valve MV E Vtfvmnsf29.3cm/sMV DECEL EMTB259iv MV A Bpsziiql561.0cm/sE/A Ratio0.4 Tricuspid Valve TR P. Gkrblxwt861cs/sRAP QQECGSIN0upCm TR Peak Gr.29ezIsYTAO11atTg LEFT VENTRICLE The left ventricle is normal size. There is mild concentric left ventricular hypertrophy. The systoli c function is mildly impaired. Left ventricular ejection fraction is estimated at 45%. Septal motion consistent with conduction abnormality. Transmitral Doppler flow pattern is Grade I-abnormal relaxati on pattern. RIGHT VENTRICLE The right ventricle is normal size. The right ventricular systolic function is normal. ATRIA The left atrium size is normal. The right atrium size is normal. The interatrial septum is intact wit h no evidence for an atrial septal defect or patent foramen ovale as noted on 2-D or Doppler imaging. AORTIC VALVE The aortic valve is moderately thickened but opens well. Doppler and Color Flow revealed mild to mode rate aortic regurgitation. There is no significant aortic valvular stenosis. MITRAL VALVE The mitral valve is calcified but opens well. Mitral annular calcification is mild. There is no evide nce of mitral valve prolapse. There is no mitral valve stenosis. Doppler and Color-flow revealed mild to moderate mitral regurgitation. TRICUSPID VALVE The tricuspid valve is normal in structure and function. Doppler and Color Flow revealed mild tricusp id regurgitation. The PA pressure was estimated at 28 mmHg. There is no tricuspid valve stenosis. PULMONIC VALVE The pulmonic valve is not well visualized. Doppler and Color Flow revealed mild pulmonic valvular reg urgitation. There is no pulmonic valvular stenosis. GREAT VESSELS The aortic root is normal in size. The ascending aorta is normal in size. The IVC is normal in size a nd collapses >50% with inspiration. PERICARDIAL EFFUSION There is no evidence of significant pericardial effusion. Critical Notification Critical Value: No <Conclusion> The left ventricle is normal size. The systolic function is mildly impaired. Left ventricular ejection fraction is estimated at 45%. Septal motion consistent with conduction abnormality. There is mild concentric left ventricular hypertrophy. Doppler and Color Flow revealed mild to moderate aortic regurgitation. There is no significant aortic valvular stenosis. Doppler and Color-flow revealed mild to moderate mitral regurgitation. Doppler and Color Flow revealed mild tricuspid regurgitation. The PA pressure was estimated at 28 mmHg. Signed by : Hayden Loyola MD Electronically Approved : 01/01/2020 11:49:05
--- NOTE | 2020-01-01 13:57 | RAD ---
MR#: [id number] Date of Study: 01/01/2020 Ordering Physician: AISSATOU BOJORQUEZ Referring Physician: MAYUR WILSON Tech: RT Yessenia Montes De Oca) (N) APPROVED REPORT Test Type: Pharmacological Stress Nurse/Tech: RT Tavon (Jackie) (N) Test Indications: coronary artery disease Cardiac History: 7 stents Medications: see EHR Medical History: history of right breast cancer Resting ECG: sinus rhythm with LBBB Resting Heart Rate: 73 bpm Resting Blood Pressure: 135/51mmHg Pretest Chest Pain: None Nurse/Tech Notes Consent: The procedure was explained to the patient in lay terms. Informed consent was witnessed. Derick eout was entered into [employer]. History and Stress Test performed by RT Yessenia Montes De Oca) (N) Pharm. Details Pharmacologic stress testing was performed using 0.4mg per 5ml of regadenoson given intravenously ove r 7-10 seconds. POST EXERCISE Reason for Termination: Infusion complete Max HR: 103 bpm Max Blood Pressure: 152/58mmHg INTERPRETATION Stress EKG Conclusion: Non-diagnostic EKG due to pacing artifact. Imaging Protocol IMAGE PROTOCOL: Rest Tc-99m/stress Tc-99m 1 day Rest: Stress: Viability: Radiopharm.Tc99m OjjylriucHd93m Sestamibi Dose10.6mCi 31.8mCi Duration 15min. 10min. Img Date 01/01/2020 01/01/2020 Inj-Img Peyy32ywd. 60min. Rest Admin Site:IV - Left AntecubitalAdministrator: RT Tavon (Jackie)(N) Stress Admin Site: IV - Left AntecubitalAdministrator: RT Yessenia Montes De Oca)(N) STRESS DATA End Diast. Vol.83.0mlAv. Heart Rate83.0bpm End Syst. Vol.21.0mlCO Index BSA0.0L/min Myocardial Fxwc253.0gEject. Roklbuin40.0% Stress Rates Pk. Fill Rate2.53EDV/secLVtime Pk. Fill 191.55msec Pk. Empty Rate4.31ESV/secLVtime Pk. Bfuae802.53msec 1/3 Pk. Fill0.92EDV/sec Stress Scores Regional WT0.00Summed WT4.00 Regional WM0.00Summed WM2.00 The rest and stress images show normal perfusion, normal contraction and thickening. LV Perf. Quant 17 Seg. SSS6.00 17 Seg. SRS6.00 17 Seg. SDS2.00 Stress Defect Extent (% LAD)6.90Rest Defect Extent (% LAD)7.50Rev. Defect Extent (% LAD)0.00 Stress Defect Extent (% LCX) 41.30Rest Defect Extent (% LCX)33.80Rev. Defect Extent (% LCX)0.00 Stress Defect Extent (% RCA)0.00Rest Defect Extent (% RCA)10.00Rev. Defect Extent (% RCA)0.00 Stress Defect Extent (% NOEMI)11.70Rest Defect Extent (% NOEMI)15.90Rev. Defect Extent (% NOEMI)0.00 Other Information Quality:Average Risk Assessment: Low Risk Conclusion 1. Non-diagnostic EKG due to probable pacing. 2. Normal perfusion at stress/rest. 3. Low risk study. 4. EF > 60%. Signed by : Leopoldo Parker, Electronically Approved : 01/01/2020 13:56:42
== END ==
LOC: NM 09:20
PROVIDERS: ATTEND Internal Medicine Cardiovascular Disease
DX: I25.10 Atherosclerotic heart disease of native coronary artery without angina pectoris (principal); Z85.3 Personal history of malignant neoplasm of breast
CPT/HCPCS: 78452; 93017; 93306; A9500; J2785